=== PATIENT | male | born 1975 | race Caucasian/White ===

== ENCOUNTER 2018-06-28 12:00 | Emergency (ER) | payer OTHER ==
[2018-06-28] MEDS ORDERED: KETOROLAC 30 MG/ML 1 ML VIAL IVP STA (12:44)
--- NOTE | 2018-06-28 12:46 | ED ---
Chest Pain HPI - General Chief Complaint: Chest Pain Stated Complaint: rib pain Time Seen by Provider: 06/28/18 12:08 Source: patient, RN notes reviewed, old records reviewed Mode of arrival: ambulatory Limitations: no limitations - History of Present Illness Initial Comments: Patient is a 43-year-old male presents for shortness today with right-sided chest pain rib pain and abdominal pain. Patient is concerned that it could be more than a pulled muscle. He reports his symptoms started on Wednesday. It does seem to be worse after eating. 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 He states that he has felt nauseated. He reports that he's had normal urination and bowel habits.Patient denies any recent fever , chills, shortness of breath, , back pain, abdominal pain, nausea vomiting, numbness or tingling, dysuria or hematuria, constipation or diarrhea, headaches or visual changes, or any other current symptoms - Related Data Home Medications Medication Instructions Recorded Confirmed Multivitamin [Men's Multi-Vitamin] 1 tab PO DAILY 12/31/14 06/28/18 Ibuprofen [Motrin Ib] 600 - 800 mg PO Q6H PRN 06/28/18 06/28/18 Previous Rx's Medication Instructions Recorded Cyclobenzaprine [Flexeril] 10 mg PO TID #12 tab 06/28/18 Ibuprofen [Motrin] 600 mg PO Q6HR PRN #20 tab 06/28/18 Allergies Allergy/AdvReac Type Severity Reaction Status Date / Time No Known Allergies Allergy Verified 06/28/18 12:49 Review of Systems ROS Statement: Those systems with pertinent positive or pertinent negative responses have been documented in the HPI. ROS Other: All systems not noted in ROS Statement are negative. EKG Findings - EKG Comments: EKG Findings:: EKG performed at 1251 shows normal sinus rhythm normal EKG. Jugular and 72 bpm. Intervals 140 ms. QS duration is 86. QT QTc is 376/411 ms. Past Medical History Past Medical History: No Reported History Additional Past Medical History / Comment(s): blood clot left arm History of Any Multi-Drug Resistant Organisms: None Reported Past Surgical History: Orthopedic Surgery Additional Past Surgical History / Comment(s): leg Past Anesthesia/Blood Transfusion Reactions: No Reported Reaction Past Psychological History: No Psychological Hx Reported Smoking Status: Current every day smoker Past Alcohol Use History: Occasional Past Drug Use History: None Reported General Exam - General Exam Comments Initial Comments: 43-year-old male. Alert and oriented. No distress. Limitations: no limitations General appearance: alert, in no apparent distress Head exam: Present: atraumatic, normocephalic, normal inspection Eye exam: Present: normal appearance, PERRL, EOMI. Absent: scleral icterus, conjunctival injection, periorbital swelling ENT exam: Present: normal exam, mucous membranes moist Neck exam: Present: normal inspection. Absent: tenderness, meningismus, lymphadenopathy Respiratory exam: Present: normal lung sounds bilaterally. Absent: respiratory distress, wheezes, rales, rhonchi, stridor Cardiovascular Exam: Present: regular rate, normal rhythm, normal heart sounds. Absent: systolic murmur, diastolic murmur, rubs, gallop, clicks GI/Abdominal exam: Present: soft, normal bowel sounds. Absent: distended, tenderness, guarding, rebound, rigid Extremities exam: Present: normal inspection, full ROM, normal capillary refill. Absent: tenderness, pedal edema, joint swelling, calf tenderness Back exam: Present: normal inspection Neurological exam: Present: alert, oriented X3, CN II-XII intact Psychiatric exam: Present: normal affect, normal mood Skin exam: Present: warm, dry, intact, normal color. Absent: rash Course Vital Signs 06/28/18 12:01 Temperature 98.1 F Pulse Rate 75 Respiratory 20 Rate Blood Pressure 133/90 O2 Sat by Pulse 98 Oximetry Chest Pain MDM - MDM 43-year-old male presents emergency room today with complaints of right-sided rib pain. Initially it was related to muscle strain. Patient complains some deep internal pain. This time Patient is given IV fluids and laboratory obtained. Patient's labwork was reviewed and unremarkable. Normal kidney and liver function. Urinalysis shows no blood. Patient's EKG was normal. Negative troponin. Chest x-rays unremarkable. Discussed with all lab work and x-rays the patient's symptoms are likely muscular skeletal. Discussed discharging the Patient. With PCP. We'll discharge of Motrin 600 and Flexeril prescription. Disposition Clinical Impression: Chest wall pain Disposition: HOME SELF-CARE Condition: Good Instructions (If sedation given, give patient instructions): Costochondritis ( ED) Additional Instructions: Follow-up with primary care physician. Patient should return to the emergency department if any alarming signs or symptoms occur. Patient should take Motrin and Tylenol and use the muscle relaer prescription as prescribed. Prescriptions: Cyclobenzaprine [Flexeril] 10 mg PO TID #12 tab Ibuprofen [Motrin] 600 mg PO Q6HR PRN #20 tab PRN Reason: Pain Is patient prescribed a controlled substance at d/c from ED?: No Referrals: Davin Chen DO [Primary Care Provider] - 1-2 days Time of Disposition: 15:25
--- NOTE | 2018-06-28 14:04 | XR ---
EXAMINATION TYPE: XR chest 2V DATE OF EXAM: 06/28/2018 COMPARISON: Chest x-ray December 31, 2014 HISTORY: Right-sided chest pain. TECHNIQUE: Frontal and lateral views of the chest are obtained. FINDINGS: There is no focal air space opacity, pleural effusion, or pneumothorax seen. The cardiac silhouette size is within normal limits. The osseous structures are intact. IMPRESSION: No acute process. No significant change from prior.
[2018-06-28 14:10] LABS: Basophils # (A) 0.1 k/uL (0-0.2); Basophils % (A) 1 %; Eosinophils # (A) 0.3 k/uL (0-0.7); Eosinophils % (A) 3 %; HCT 52.2 % (39.0-53.0); HGB 17.6 gm/dL (13.0-17.5); Lymphocytes # (A) 1.8 k/uL (1.0-4.8); Lymphocytes % (A) 19 %; MCH 30.4 pg (25.0-35.0); MCHC 33.7 g/dL (31.0-37.0); MCV 90.1 fL (80.0-100.0); Mean Platelet Volume 6.5; Monocytes # (A) 0.5 k/uL (0-1.0); Monocytes % (A) 6 %; Neutrophils # (A) 6.9 k/uL (1.3-7.7); Neutrophils % (A) 71 %; Platelet Count 253 k/uL (150-450); RBC 5.79 m/uL (4.30-5.90); RDW 13.2 % (11.5-15.5); WBC 9.8 k/uL (3.8-10.6)
[2018-06-28 14:19] LABS: ALT 38 U/L (21-72); AST 26 U/L (17-59); Albumin 3.3 g/dL (3.5-5.0); Alkaline Phosphatase 72 U/L (38-126); Amylase 57 U/L (30-110); Anion Gap 5 mmol/L; Blood Urea Nitrogen 11 mg/dL (9-20); Calcium 9.3 mg/dL (8.4-10.2); Carbon Dioxide 28 mmol/L (22-30); Chloride 107 mmol/L (98-107); Glucose 94 mg/dL (74-99); INR 0.9 (<1.2); Lipase 152 U/L (23-300); Magnesium 2.1 mg/dL (1.6-2.3); Partial Thromboplastin Time 25.3 sec (22.0-30.0); Potassium 4.4 mmol/L (3.5-5.1); Prothrombin Time 9.8 sec (9.0-12.0); Sodium 140 mmol/L (137-145); Total Bilirubin 1.2 mg/dL (0.2-1.3); Total Protein 6.3 g/dL (6.3-8.2)
[2018-06-28 15:14] LABS: Appearance,Urine Clear (Clear); Bilirubin,Urine Negative (Negative); Blood,Urine Negative (Negative); Color,Urine Yellow; Glucose,Urine (UA) Negative (Negative); Ketones,Urine Negative (Negative); Leukocyte Esterase,Urine Negative (Negative); Nitrite,Urine Negative (Negative); Protein,Urine Negative (Negative); Specific Gravity,Urine 1.016 (1.001-1.035)
[2018-06-28 15:30] VITALS: BP 137/104; PULSE 72; RESP 14; TEMP 97.8
== END 2018-06-28 15:35 | disposition home or self-care (01) ==
LOC: EC 12:00
DX: R07.89 Other chest pain (principal); R07.81 Pleurodynia; F17.200 Nicotine dependence, unspecified, uncomplicated
CPT/HCPCS: 36415; 93005; 80053; 82150; 83690; 83735; 84484; 85025; 85610; 85730; 81003; 71046; 99285; 96374; J1885

== ENCOUNTER 2024-08-25 23:13 | Inpatient (IN) | payer OTHER ==
[2024-08-25] MEDS: PANTOPRAZOLE 40 MG/10 ML VIAL IVP STA (23:30)
[2024-08-25] MEDS: SODIUM CHLORIDE 0.9% 1,000 ML IV ONE (23:30)
[2024-08-25] MEDS: MORPHINE SULFATE 4 MG/ML SYRINGE IVP STA (23:31)
[2024-08-25] MEDS: ONDANSETRON 4 MG/2 ML VIAL IVP STA (23:31)
[2024-08-25] MEDS: HYDROmorphone 0.5 MG/0.5 ML SYRINGE IVP STA (23:47)
--- NOTE | 2024-08-25 23:47 | XR ---
EXAMINATION TYPE: XR chest 1V portable DATE OF EXAM: 08/25/2024 11:38 PM COMPARISON: None. CLINICAL INDICATION: Male, 49 years old with history of barbara, diffuse abdominal pain, right shoulder p ain TECHNIQUE: XR chest 1V portable view(s) obtained. FINDINGS: The heart size is normal. The pulmonary vasculature is normal. The lungs are clear. There is a right-sided pneumoperitoneum. Additional workup is recommended. Report was called to the e mergency room by Dr. Nichols by telephone at the time of interpretation 2342 hours 08/25/2024 IMPRESSION: 1. Pneumoperitoneum. 2. No acute pulmonary process. [facility], , 08/25/2024 11:44 PM
[2024-08-25] MEDS ORDERED: VANCOMYCIN IV PER PHARMACY 1 EACH MISC MISCELLANE PRN (23:48)
[2024-08-25 23:51] LABS: ALT 40 U/L (4-49); African American GFR (CKD) 83 (>60 ml/min/1.73 sqM); Albumin 3.7 g/dL (3.5-5.0); Amylase 69 U/L (30-110); Anion Gap 11 mmol/L; Blood Urea Nitrogen 7 mg/dL (9-20); Carbon Dioxide 19 mmol/L (22-30); Chloride 103 mmol/L (98-107); Glucose 103 mg/dL (74-99); Lipase 170 U/L (23-300); Non-African American GFR(CKD) 72 (>60 ml/min/1.73 sqM); Sodium 133 mmol/L (137-145); Total Protein 6.9 g/dL (6.3-8.2)
[2024-08-25] MEDS: PIPERACILLIN-TAZOBACTAM 3.375 GM in SODIUM CHLORIDE 0.9% 100 ML IVPB SCH (23:51)
[2024-08-25 23:53] LABS: Basophils # (A) 0.11 10*3/uL (0.00-0.10); Basophils % (A) 0.9 %; Eosinophils # (A) 0.42 10*3/uL (0.04-0.35); Eosinophils % (A) 3.4 %; HCT 54.6 % (39.6-50.0); Lymphocytes # (A) 4.87 10*3/uL (0.90-5.00); Lymphocytes % (A) 39.7 %; MCH 34.3 pg (27.0-32.0); MCHC 35.7 g/dL (32.0-37.0); Mean Platelet Volume 9.2 fL (9.5-12.2); Monocytes # (A) 0.76 10*3/uL (0.20-1.00); Monocytes % (A) 6.2 %; Neutrophils # (A) 6.06 10*3/uL (1.80-7.70); Neutrophils % (A) 49.3 %; Platelet Count 320 10*3/uL (140-440); RBC 5.69 10*6/uL (4.40-5.60); RDW 13.2 % (11.5-14.5); WBC 12.28 10*3/uL (4.50-10.00)
[2024-08-25 23:58] LABS: Partial Thromboplastin Time 23.5 sec (22.0-30.0); Prothrombin Time 10.9 sec (10.0-12.5)
[2024-08-25] MEDS: LACTATED RINGERS 1,000 ML IV ONE (23:58)
[2024-08-25] MEDS: LACTATED RINGERS 1,000 ML IV SCH (23:58)
[2024-08-26 00:09] LABS: AST 52 U/L (17-59)
[2024-08-26 00:10] LABS: Alkaline Phosphatase 93 U/L (38-126)
[2024-08-26] MEDS: VANCOMYCIN 2,000 MG in SODIUM CHLORIDE 0.9% 500 ML 500 ML IVPB ONE (00:12)
[2024-08-26 00:13] LABS: HGB 19.5 g/dL (13.0-17.0)
--- NOTE | 2024-08-26 00:17 | ED ---
General Adult HPI - General Chief complaint: Abdominal Pain Stated complaint: Difficulty Breathing, Abdominal Pain Time Seen by Provider: 08/25/24 23:20 Source: patient, RN notes reviewed, old records reviewed Mode of arrival: ambulatory Limitations: no limitations - History of Present Illness Initial comments: 49-year-old male with past medical history for blood clot in his arm previously was currently not on anticoagulation presents emergency department with severe abdominal pain and right shoulder pain. States that he has been dealing with some intermittent abdominal discomfort over the last week or so. He has been taking Motrin for it. Shortly prior to arrival, patient began experiencing excruciating worsening abdominal pain with right shoulder pain and states he cannot breathe. Denies any cough, fevers, chills. States his pain is primarily in the upper abdomen as well as the right shoulder. Denies any tonny chest pain or back pain. Denies any urinary complaints. Denies any cough or congestion. No history of abdominal surgeries. Presents for further evaluation at this time. - Related Data Home Medications Medication Instructions Recorded Confirmed No Known Home Medications 08/26/24 08/26/24 Allergies Allergy/AdvReac Type Severity Reaction Status Date / Time No Known Allergies Allergy Verified 08/26/24 15:25 Review of Systems ROS Statement: Those systems with pertinent positive or pertinent negative responses have been documented in the HPI. Review of Systems: CONST: Denies fever EYES: Denies blurry vision ENT: Denies nasal congestion C/V: Denies Chest pain RESP: Denies shortness of breath GI: Endorses abdominal pain : Denies dysuria SKIN: Denies rash. MSK: Endorses right shoulder pain NEURO: Denies headache ROS Other: All systems not noted in ROS Statement are negative. Past Medical History Past Medical History: No Reported History Additional Past Medical History / Comment(s): blood clot left arm History of Any Multi-Drug Resistant Organisms: None Reported Past Surgical History: Orthopedic Surgery Additional Past Surgical History / Comment(s): leg Past Anesthesia/Blood Transfusion Reactions: No Reported Reaction Past Psychological History: No Psychological Hx Reported Past Alcohol Use History: Occasional Past Drug Use History: None Reported - Past Family History Mother Family Medical History: Dementia Father Family Medical History: Cancer Additional Family Medical History / Comment(s): melanoma General Exam - General Exam Comments Initial Comments: General: Appears in moderate distress secondary to pain. HEAD: Normal with no signs of head trauma. EYES: PERRLA, EOMI, conjunctiva normal, no discharge. ENT: Hearing grossly intact, normal oropharynx. RESPIRATORY: Clear breath sounds bilaterally. No wheezes, rales, or rhonchi. C/V: Regular rate and rhythm. S1 and S2 auscultated, no edema, peripheral pulses 2+ and intact throughout ABD: Abdomen is soft, nondistended. Tender to palpation in the epigastric and bilateral upper quadrants. Mild guarding but no rebound tenderness. No peritoneal signs. EXT: Normal range of motion, no obvious deformity right shoulder pain is not reproducible on palpation. Not reproducible with movement. SKIN: No rashes or lesions observed on exposed skin. NEURO: Alert and oriented x 4. Limitations: no limitations Course Vital Signs 08/25/24 08/25/24 08/26/24 23:14 23:52 00:06 Temperature 98.1 F Pulse Rate 78 77 67 Respiratory 18 20 18 Rate Blood Pressure 169/103 136/96 126/73 O2 Sat by Pulse 96 95 95 Oximetry 08/26/24 08/26/24 08/26/24 00:23 01:05 02:52 Temperature Pulse Rate 74 67 Respiratory 18 18 Rate Blood Pressure 125/75 129/87 O2 Sat by Pulse 95 95 96 Oximetry 08/26/24 08/26/24 08/26/24 03:19 03:50 05:00 Temperature Pulse Rate 75 81 73 Respiratory 16 18 16 Rate Blood Pressure 122/67 130/75 149/91 O2 Sat by Pulse 96 96 95 Oximetry 08/26/24 08/26/24 05:30 07:15 Temperature Pulse Rate 75 84 Respiratory 24 20 Rate Blood Pressure 163/91 161/101 O2 Sat by Pulse 95 95 Oximetry Medical Decision Making - Medical Decision Making Was pt. sent in by a medical professional or institution (, PA, CRAYON MOLDING MACHINE OPERATOR, urgent care, hospital, or long-term...) When possible be specific @ -No Did you speak to anyone other than the patient for history (EMS, parent, family, police, friend...)? What history was obtained from this source @ -No Did you review nursing and triage notes (agree or disagree)? Why? @ -I reviewed and agree with nursing and triage notes Were old charts reviewed (outside hosp., previous admission, EMS record, old EKG, old radiological studies, urgent care reports/EKG's, long-term records)? Report findings @ -No old charts were reviewed Differential Diagnosis (chest pain, altered mental status, abdominal pain women, abdominal pain men, vaginal bleeding, weakness, fever, dyspnea, syncope, headache, dizziness, GI bleed, back pain, seizure, CVA, palpatations, mental health, musculoskeletal)? @ -Differential Abdominal Pain Men: Appendicitis, cholecystitis, diverticulosis, ischemic bowel, pancreatitis, hepatitis, UTI, gastroenteritis, AAA, incarcerated hernia, bowel obstruction, constipation, inflammatory bowel, hepatitis, peptic ulcer disease, splenic infarction, perforated viscus, testicular torsion, this is not meant to be an all-inclusive list EKG interpreted by me (3pts min.). @ -As above X-rays interpreted by me (1pt min.). @ -Patient does have free air under the diaphragm on chest x-ray. Located under the right hemidiaphragm. Concerning for pneumoperitoneum and perforated viscus CT interpreted by me (1pt min.). @ -CT imaging shows pneumoperitoneum with ascites. Concern for ruptured viscus. There is wall thickening and inflammatory changes around the gallbladder as well. Concerning for acute cholecystitis. Gastritis and proximal duodenitis are present. Inflammatory changes of the colon as well. Aorta appears unremarkable. U/S interpreted by me (1pt. min.). @ -None done What testing was considered but not performed or refused? (CT, X-rays, U/S, labs)? Why? @ -None What meds were considered but not given or refused? Why? @ -None Did you discuss the management of the patient with other professionals (professionals i.e. , PA, CRAYON MOLDING MACHINE OPERATOR, lab, RT, psych nurse, social service manager, aerial lineman, teacher, intelligence officer basic, complex case manager)? Give summary @ -Discussed x-ray findings with quality control lead surgeon Dr. Montague immediately after obtaining them, which showed free air under the diaphragm concerning for pneumoperitoneum. Was in agreement with plan for n.p.o., CT imaging, labs and empiric antibiotics. Stat rad did call with the CT imaging results and they did not see an obvious ulcer rupture but they are concerned for the cholecystitis as well as the pneumoperitoneum. Discussed CT imaging with Dr. Montague and his laboratory studies at 0050, Including the pneumoperitoneum as well as the concerning findings for cholecystitis.. Patient hemodynamically stable at this time with continued pain. Was in agreement plan for admission under his service as well as continue with the above plan for n.p.o., IV antibiotics, IV fluids. Was smoking cessation discussed for >3mins.? @ -No Was critical care preformed (if so, how long)? @ -yes, 36 minutes Were there social determinants of health that impacted care today? How? (Homelessness, low income, unemployed, alcoholism, drug addiction, transportation, low edu. Level, literacy, decrease access to med. care, [facility], rehab)? @ -No Was there de-escalation of care discussed even if they declined (Discuss DNR or withdrawal of care, Hospice)? DNR status @ -No What co-morbidities impacted this encounter? (DM, HTN, Smoking, COPD, CAD, Cancer, CVA, ARF, Chemo, Hep., AIDS, mental health diagnosis, sleep apnea, morbid obesity)? @ -None Was patient admitted / discharged? Hospital course, mention meds given and route, prescriptions, significant lab abnormalities, going to OR and other pertinent info. @ -Patient presents with severe abdominal and right shoulder pain. Discussed with the patient we will obtain with CT imaging of the chest abdomen pelvis. Ab dominal labs will also be obtained. Patient given IV fluids, Protonix, Zofran, pain meds. We did shoed a portable chest x-ray at bedside which does show free air under the right hemidiaphragm. Added on was a blood culture and patient will be started on empiric antibiotics vancomycin and Zosyn as well as initiate a second IV and provide the patient with a total of 2 L of IV fluids and started on maintenance infusion. Patient made NPO. I discussed the case with the on- call surgeon Dr. Montague who was in agreement with this plan and recommended the CT imaging. Patient initially presented hypertensive but this did improve with analgesia medications. Hemodynamically stable otherwise. Patient expressed understanding and was in agreement this plan. EKG shows no signs of acute ischemia.Laboratory studies remarkable for a leukocytosis of 12, and elevated hemoglobin of 19.5, normal lactic acid, undetectable troponin, normal hepatobiliary labs. CT imaging returned remarkable for pneumoperitoneum, with cholecystitis findings. No obvious aortic injury. I discussed the results with the patient and updated him. Will continue with the IV antibiotics, fluids, patient being n.p.o., and antiemetics as needed. Hemodynamically stable at this time. Still having continued pain which does respond to Dilaudid. I discussed the results of the CT and the labs with Dr. Montague on a call back at 0050, Including the pneumoperitoneum as well as the concerning findings for cholecystitis. Would like the patient admitted under his service and continue with patient being n.p.o., IV antibiotics, IV fluids. At time of admission, patient hemodynamically stable complaining of pain. Patient was holding in the ER. I reevaluated the patient and his abdomen is slightly more distended than previous. Is still having continued pain. Remains hemodynamically stable. I reach back out to Dr. Montague at 0538 to update him via perfect serve.Did not receive a direct response but shortly there afterwards, OR was being called in for surgery. Undiagnosed new problem with uncertain prognosis? @ -No Drug Therapy requiring intensive monitoring for toxicity (Heparin, Nitro, Insulin, Cardizem)? @ -No Were any procedures done? @ -No Diagnosis/symptom? @ -Pneumoperitoneum , cholecystitis Acute, or Chronic, or Acute on Chronic? @ -Acute Uncomplicated (without systemic symptoms) or Complicated (systemic symptoms)? @ -Complicated Side effects of treatment? @ -None Exacerbation, Progression, or Severe Exacerbation] @ -No Poses a threat to life or bodily function? @ -yes - Lab Data Result diagrams: 08/25/24 23:26 08/25/24 23:26 Lab Results 08/25/24 08/25/24 08/25/24 Range/Units 23:25 23:26 23:26 WBC 12.28 H (4.50-10.00) 10*3/uL RBC 5.69 H (4.40-5.60) 10*6/uL Hgb 19.5 H* (13.0-17.0) g/dL Hct 54.6 H (39.6-50.0) % MCV 96.0 (80.0-97.0) fL MCH 34.3 H (27.0-32.0) pg MCHC 35.7 (32.0-37.0) g/dL Plt Count 320 (140-440) 10*3/uL MPV 9.2 L (9.5-12.2) fL Immature Gran % (Auto) 0.5 % Neutrophils % 49.3 % Lymphocytes % 39.7 % Monocytes % 6.2 % Eosinophils % 3.4 % Basophils % 0.9 % Immature Gran # 0.06 H (0.00-0.04) 10*3/uL Neutrophils # 6.06 (1.80-7.70) 10*3/uL Lymphocytes # 4.87 (0.90-5.00) 10*3/uL Monocytes # 0.76 (0.20-1.00) 10*3/uL Eosinophils # 0.42 H (0.04-0.35) 10*3/uL Basophils # 0.11 H (0.00-0.10) 10*3/uL PT 10.9 (10.0-12.5) sec INR 1.0 (<1.2) APTT 23.5 (22.0-30.0) sec Sodium (137-145) mmol/L Potassium (3.5-5.1) mmol/L Chloride (98-107) mmol/L Carbon Dioxide (22-30) mmol/L Anion Gap mmol/L BUN (9-20) mg/dL Creatinine (0.66-1.25) mg/dL Est GFR (CKD-EPI)AfAm (>60 ml/min/1.73 sqM) Est GFR (CKD-EPI)NonAf (>60 ml/min/1.73 sqM) Glucose (74-99) mg/dL Plasma Lactic Acid Matthieu (0.7-2.0) mmol/L Calcium (8.4-10.2) mg/dL Total Bilirubin (0.2-1.3) mg/dL AST (17-59) U/L ALT (4-49) U/L Alkaline Phosphatase (38-126) U/L Troponin I (0.000-0.034) ng/mL Total Protein (6.3-8.2) g/dL Albumin (3.5-5.0) g/dL Amylase (30-110) U/L Lipase (23-300) U/L Blood Type A Positive Blood Type Recheck A Pos Bld Type Recheck Status No Antibody Screen NEGATIVE Spec Expiration Date 08/28/2024 - 2325 04/25/25 04/25/25 04/25/25 Range/Units 23:26 23:26 23:26 WBC (4.50-10.00) 10*3/uL RBC (4.40-5.60) 10*6/uL Hgb (13.0-17.0) g/dL Hct (39.6-50.0) % MCV (80.0-97.0) fL MCH (27.0-32.0) pg MCHC (32.0-37.0) g/dL Plt Count (140-440) 10*3/uL MPV (9.5-12.2) fL Immature Gran % (Auto) % Neutrophils % % Lymphocytes % % Monocytes % % Eosinophils % % Basophils % % Immature Gran # (0.00-0.04) 10*3/uL Neutrophils # (1.80-7.70) 10*3/uL Lymphocytes # (0.90-5.00) 10*3/uL Monocytes # (0.20-1.00) 10*3/uL Eosinophils # (0.04-0.35) 10*3/uL Basophils # (0.00-0.10) 10*3/uL PT (10.0-12.5) sec INR (<1.2) APTT (22.0-30.0) sec Sodium 133 L (137-145) mmol/L Potassium 4.0 (3.5-5.1) mmol/L Chloride 103 (98-107) mmol/L Carbon Dioxide 19 L (22-30) mmol/L Anion Gap 11 mmol/L BUN 7 L (9-20) mg/dL Creatinine 1.19 (0.66-1.25) mg/dL Est GFR (CKD-EPI)AfAm 83 (>60 ml/min/1.73 sqM) Est GFR (CKD-EPI)NonAf 72 (>60 ml/min/1.73 sqM) Glucose 103 H (74-99) mg/dL Plasma Lactic Acid Matthieu 2.0 (0.7-2.0) mmol/L Calcium 9.0 (8.4-10.2) mg/dL Total Bilirubin 1.0 (0.2-1.3) mg/dL AST 52 (17-59) U/L ALT 40 (4-49) U/L Alkaline Phosphatase 93 (38-126) U/L Troponin I <0.012 (0.000-0.034) ng/mL Total Protein 6.9 (6.3-8.2) g/dL Albumin 3.7 (3.5-5.0) g/dL Amylase 69 (30-110) U/L Lipase 170 (23-300) U/L Blood Type Blood Type Recheck Bld Type Recheck Status Antibody Screen Spec Expiration Date - EKG Data -: EKG Interpreted by Me EKG Comments: 12-lead Electrocardiogram Interpretation Note EKG was reviewed and interpreted by myself. 12-lead ECG performed at 2322 is interpreted by me as revealing normal sinus rhythm at a rate of 75 beats per minute. [place] is normal. GA interval is 148 ms, QRS durations 92 ms, QTc is 405 ms.. There were no ST or T wave abnormalities to suggest myocardial ischemia or injury. R wave progression across the precordium was satisfactory. By my interpretation this EKG is non-diagnostic for acute ischemia. Critical Care Time Critical Care Time: Yes Total Critical Care Time: 36 Disposition Clinical Impression: Pneumoperitoneum, Cholecystitis Disposition: ADMITTED IP TO THIS HOSP Condition: Serious Time of Disposition: 01:05
[2024-08-26] MEDS: HYDROmorphone 0.5 MG/0.5 ML SYRINGE IVP STA ×3 (00:38→10:20)
--- NOTE | 2024-08-26 00:47 | CT ---
EXAM: CT Chest, Abdomen and Pelvis Without and With Intravenous Contrast CLINICAL HISTORY: ITS.REASON CT Reason: diffuse pain TECHNIQUE: Axial computed tomographic images of the chest, abdomen and pelvis without and with intravenous contrast. CTDI is 49.3 mGy and DLP is 2055 mGy-cm. This CT exam was performed using one or more of the following dose reduction techniques: automated exposure control, adjustment of the mA and/or kV according to patient size, and/or use of iterative reconstruction technique. COMPARISON: No previous studies. FINDINGS: VASCULATURE: Aorta: Atherosclerotic disease of the thoracic aorta is noted. Atherosclerotic disease of the abdominal aorta without change in caliber. No aortic aneurysm. No dissection. Pulmonary arteries: Following the administration of intravenous contrast, central pulmonary arteries are unremarkable. Good flow within the peripheral branches the pulmonary arteries. Great vessels of aortic arch: No acute findings. No dissection. No arterial occlusion or significant stenosis. Celiac trunk and mesenteric arteries: Good flow within the celiac, SMA, the renal arteries, and ANGEL. Renal arteries: See above. Iliac arteries: Flow is noted within the common iliac, external and internal iliac arteries, extending to the common femoral arteries. CHEST: Lungs: COPD. Minimal scarring and subsegmental atelectasis in the mid lower lung zones. No mass. Pleural space: Unremarkable. No pneumothorax. No pleural effusions. Heart: Unremarkable. No cardiomegaly. No significant pericardial effusion. Mediastinum: Small hiatal hernia and distal esophagitis. ABDOMEN: Liver: Moderate quantity of free intra-abdominal air is noted most notably about the dome of the liver. Gallbladder and bile ducts: Possible small gallstones. Clinical correlation is advised to assess for acute cholecystitis. Inflammatory changes are noted about the gallbladder is. No ductal dilation. Pancreas: Unremarkable. No ductal dilation. No mass. Spleen: Unremarkable. No splenomegaly. Adrenals: Unremarkable. No mass. Kidneys and ureters: Unremarkable. No obstructing stones. No hydronephrosis. No solid mass. Stomach and bowel: Wall thickening of the gastric antrum and the duodenum. Consider duodenitis/gastritis. Possible mild diffuse wall thickening the colon. No obstruction. PELVIS: Appendix: Appendix is unremarkable. Bladder: Unremarkable. No stones. No mass. Reproductive: Coarse calcifications noted within the prostate gland. CHEST, ABDOMEN and PELVIS: Intraperitoneal space: Moderate quantity of ascites surrounding the liver. No free air. Bones/joints: Moderate to severe degenerative disc disease of the thoracic spine, kyphosis, and dextroscoliosis. No acute fracture. No dislocation. Soft tissues: Unremarkable. Lymph nodes: Unremarkable. No enlarged lymph nodes. Other findings: Pelvic phlebolith are noted. IMPRESSION: 1. Central pulmonary arteries are unremarkable. 2. Peripheral branches the pulmonary arteries are unremarkable. 3. There is free intra-abdominal air most notably about the liver and ascites. Findings are worrisome for ruptured viscus. Surgical consultation is highly advised. 4. Good flow within the abdominal aorta and its major branches. 5. Significant atherosclerotic disease. 6. Wall thickening and inflammatory changes about the gallbladder. Clinical correlation is advised to assess for acute cholecystitis. Ultrasound imaging of the right upper quadrant may provide additional information. 7. Possible mild antral gastritis and proximal duodenitis. 8. Wall thickening of the colon. Again inflammatory or infectious etiology should be considered. <MYCVCSECTION> Communications: 08/26/24 00:48 Call Doctor Regarding Above results, called Dr. Fernández on 08/26 00:48 (-04:00)
[2024-08-26] MEDS ORDERED: ONDANSETRON 4 MG/2 ML VIAL IVP PRN ×2 (01:02→08:20)
[2024-08-26] MEDS ORDERED: NALOXONE 0.4 MG/ML 1 ML VIAL IV PRN ×2 (01:02→08:20)
[2024-08-26] MEDS: HYDROmorphone 0.5 MG/0.5 ML SYRINGE IVP PRN (01:42)
[2024-08-26 03:03] LABS: Appearance,Urine Clear (Clear); Bilirubin,Urine Negative (Negative); Blood,Urine Trace (Negative); Color,Urine Colorless; Glucose,Urine (UA) Negative (Negative); Ketones,Urine Negative (Negative); Leukocyte Esterase,Urine Negative (Negative); Mucus,Urine Rare /hpf; Nitrite,Urine Negative (Negative); PH, Urine 5.5 (5.0-8.0); Protein,Urine Negative (Negative); RBC,Urine 1 /hpf (0-5); Specific Gravity,Urine 1.043 (1.001-1.035); Urobilinogen,Urine <2.0 mg/dL (<2.0); WBC,Urine 1 /hpf (0-5)
[2024-08-26] MEDS ORDERED: HYDROmorphone (PF) 1 MG/ML ONE (07:25)
[2024-08-26] MEDS ORDERED: MIDAZOLAM 2 MG/2 ML VIAL ONE (07:25)
[2024-08-26] MEDS ORDERED: PROPOFOL 10 MG/ML 20 ML VIAL IV ONE (07:25)
[2024-08-26] MEDS ORDERED: LIDOCAINE 1% INJ 10MG/ML (20 ML MDV) ONE (07:25)
[2024-08-26] MEDS ORDERED: SUCCINYLCHOLINE CHLORIDE 200 MG/10 ML VIAL IV ONE (07:25)
[2024-08-26] MEDS ORDERED: NEOSTIGMINE 1 MG/ML 10 ML VIAL ONE (07:25)
[2024-08-26] MEDS ORDERED: GLYCOPYRROLATE 0.2 MG/ML 2 ML VIAL ONE (07:25)
[2024-08-26] MEDS ORDERED: fentaNYL (PF) 50 MCG/ML 2 ML AMP ONE (07:25)
[2024-08-26] MEDS ORDERED: ROCURONIUM 10 MG/ML (5 ML VIAL) IV ONE (07:25)
--- NOTE | 2024-08-26 07:26 | P.GSHP ---
History of Present Illness H&P Date: 08/26/24 Chief Complaint: abdominal pain the 49-year-old male who has developed worsening abdominal pain over the last 48 hours. Patient states that she's been taking Motrin. Patient was worked up and returned. His chest x-ray shows free air under the right diaphragm. Computed tomography scan is suggestive of ascites around the liver. There are inflammatory changes in the colon and gallbladder. Past Medical History Past Medical History: No Reported History Additional Past Medical History / Comment(s): blood clot left arm History of Any Multi-Drug Resistant Organisms: None Reported Past Surgical History: Orthopedic Surgery Additional Past Surgical History / Comment(s): leg Past Anesthesia/Blood Transfusion Reactions: No Reported Reaction Past Psychological History: No Psychological Hx Reported Past Alcohol Use History: Occasional Past Drug Use History: None Reported Medications and Allergies Home Medications Medication Instructions Recorded Confirmed Type Multivitamin [Men's Multi-Vitamin] 1 tab PO DAILY 12/31/14 06/28/18 History Cyclobenzaprine [Flexeril] 10 mg PO TID #12 tab 06/28/18 Rx Ibuprofen [Motrin Ib] 600 - 800 mg PO Q6H PRN 06/28/18 06/28/18 History Ibuprofen [Motrin] 600 mg PO Q6HR PRN #20 tab 06/28/18 Rx Allergies Allergy/AdvReac Type Severity Reaction Status Date / Time No Known Allergies Allergy Verified 08/25/24 23:15 Surgical - Exam Vital Signs Temp Pulse Resp BP Pulse Ox 98.1 F 78 18 169/103 96 08/25/24 23:14 08/25/24 23:14 08/25/24 23:14 08/25/24 23:14 08/25/24 23:14 - General well developed, moderate distress, severe pain - Eyes PERRL - ENT normal pinna - Neck no masses - Respiratory normal expansion - Cardiovascular Rhythm: regular - Abdomen Abdomen: guarding, rebound Results - Labs 08/25/24 23:26 08/25/24 23:26 Abnormal Lab Results - Last 24 Hours (Table) 08/25/24 08/25/24 08/26/24 Range/Units 23:26 23:26 02:52 WBC 12.28 H (4.50-10.00) 10*3/uL RBC 5.69 H (4.40-5.60) 10*6/uL Hgb 19.5 H* (13.0-17.0) g/dL Hct 54.6 H (39.6-50.0) % MCH 34.3 H (27.0-32.0) pg MPV 9.2 L (9.5-12.2) fL Immature Gran # 0.06 H (0.00-0.04) 10*3/uL Eosinophils # 0.42 H (0.04-0.35) 10*3/uL Basophils # 0.11 H (0.00-0.10) 10*3/uL Sodium 133 L (137-145) mmol/L Carbon Dioxide 19 L (22-30) mmol/L BUN 7 L (9-20) mg/dL Glucose 103 H (74-99) mg/dL Ur Specific [place] 1.043 H (1.001-1.035) Urine Blood Trace H (Negative) Urine Mucus Rare H (None) /hpf Diabetes panel 08/25/24 Range/Units 23:26 Sodium 133 L (137-145) mmol/L Potassium 4.0 (3.5-5.1) mmol/L Chloride 103 (98-107) mmol/L Carbon Dioxide 19 L (22-30) mmol/L BUN 7 L (9-20) mg/dL Creatinine 1.19 (0.66-1.25) mg/dL Glucose 103 H (74-99) mg/dL Calcium 9.0 (8.4-10.2) mg/dL AST 52 (17-59) U/L ALT 40 (4-49) U/L Alkaline Phosphatase 93 (38-126) U/L Total Protein 6.9 (6.3-8.2) g/dL Albumin 3.7 (3.5-5.0) g/dL Calcium panel 08/25/24 Range/Units 23:26 Calcium 9.0 (8.4-10.2) mg/dL Albumin 3.7 (3.5-5.0) g/dL Pituitary panel 08/25/24 Range/Units 23:26 Sodium 133 L (137-145) mmol/L Potassium 4.0 (3.5-5.1) mmol/L Chloride 103 (98-107) mmol/L Carbon Dioxide 19 L (22-30) mmol/L BUN 7 L (9-20) mg/dL Creatinine 1.19 (0.66-1.25) mg/dL Glucose 103 H (74-99) mg/dL Calcium 9.0 (8.4-10.2) mg/dL Adrenal panel 08/25/24 Range/Units 23:26 Sodium 133 L (137-145) mmol/L Potassium 4.0 (3.5-5.1) mmol/L Chloride 103 (98-107) mmol/L Carbon Dioxide 19 L (22-30) mmol/L BUN 7 L (9-20) mg/dL Creatinine 1.19 (0.66-1.25) mg/dL Glucose 103 H (74-99) mg/dL Calcium 9.0 (8.4-10.2) mg/dL Total Bilirubin 1.0 (0.2-1.3) mg/dL AST 52 (17-59) U/L ALT 40 (4-49) U/L Alkaline Phosphatase 93 (38-126) U/L Total Protein 6.9 (6.3-8.2) g/dL Albumin 3.7 (3.5-5.0) g/dL Assessment and Plan Assessment: perforated viscus. Patient most likely has perforated peptic ulcer related to Motrin use. Patient undergo exploratory laparotomy.
[2024-08-26] MEDS: SODIUM CHLORIDE 0.9% 50 ML with ceFAZolin 2,000 MG IV ONE (07:32)
[2024-08-26] MEDS: LACTATED RINGERS 1,000 ML IV ONE ×4 (07:32→10:37)
--- NOTE | 2024-08-26 08:19 | P.OP ---
Date of Procedure: 08/26/24 Preoperative Diagnosis: perforated viscus Postoperative Diagnosis: perforated gastric ulcer Procedure(s) Performed: exploratory laparotomy with modified Luis Carlos repair patch of perforated gastric ulcer Anesthesia: SADIA Surgeon: Deniz Montague Estimated Blood Loss (ml): 25 Pathology: none sent Condition: stable Disposition: PACU Operative Findings: perforated gastric antral ulcer Description of Procedure: the patient's placed the operative table in supine position. He received general endotracheal tube anesthesia. His abdomen was prepped and draped usual fashion. The eye was entered through an upper midline incision. Upon entering the abdomen there is some bilious fluid seen in the upper abdomen. The abdominal PLACED a wound. The abdomen was explored. The anterior gastric wall had a 4 mm perforated ulcer in the prepyloric area and the antrum. The ulcer was closed with 3-0 GI silk sutures. Then an omental Luis Carlos patch was placed over top the repair and secured. The abdomen was irrigated with 6 L of saline. A AYAAN drains placed over top of the ulcer. And brought through separate stab incision in the right upper quadrant. The fascia is closed loop #1 PDS suture. Skin was closed melissa. Patient top she will sent to recovery in stable condition.
[2024-08-26] MEDS: IPRATROPIUM-ALBUTEROL 3 ML NEB INHALATION PRN (08:44)
[2024-08-26] MEDS: hydrALAZINE HCL 20 MG/ML 1 ML VIAL IVP PRN (09:48)
[2024-08-26] MEDS: METOPROLOL TARTRATE 5 MG/5 ML VIAL IVP PRN (10:23)
[2024-08-26] MEDS: ENOXAPARIN 40 MG/0.4 ML SYRINGE SQ SCH (11:51)
[2024-08-26] MEDS: PANTOPRAZOLE 40 MG/10 ML VIAL IV SCH (11:56)
[2024-08-26] MEDS: KETOROLAC 15 MG/ML 1 ML VIAL IVP SCH (11:58)
[2024-08-26] MEDS ORDERED: VANCOMYCIN 2,000 MG in SODIUM CHLORIDE 0.9% 500 ML 500 ML IVPB SCH (13:00)
[2024-08-26] MEDS: HYDROmorphone 2 MG/ML 1 ML SYRINGE IVP PRN (13:18)
[2024-08-26] MEDS: FLUCONAZOLE IN NACL,ISO-OSM 200 MG in SALINE 1 100ML.BAG IVPB SCH (13:19)
--- NOTE | 2024-08-26 23:15 | P.CONS ---
History of Present Illness - Reason for Consult Consult date: 08/26/24 Perforated gastric ulcer, peritonitis Requesting physician: Deniz Montague - Chief Complaint Abdominal pain x 1 week - History of Present Illness Patient is a 49-year-old male with DVT to the upper extremity, presenting to the hospital for evaluation of abdominal pain concerning of abdominal pain that apparently started for about a week however did have acute worsening on the day of presentation to the hospital patient describes the pain to be sharp almost 10 of 10 severity without any radiation did have some nausea but no vomiting no diarrhea or constipation patient was evaluated on presentation to the hospital patient was afebrile and no fever have been recorded subsequently patient was tachycardic at 1 point but not hypotensive mildly hypoxic currently on 2 L nasal cannula oxygen he did have a white count of 12.28 creatinine is 1.19 electrolytes has been normal liver enzymes are normal amylase lipase was normal urine negative patient did have a thoracic aorta CT Central pulmonary arteries are unremarkable, there was concern for wall thickening and inflammatory changes about the gallbladder and there was concern for possible acute cholecystitis patient was taken to the OR this morning patient was noticed to have perforated gastric ulcer status post expiratory laparotomy with modified Luis Carlos patch repair, patient was started on vancomycin and Zosyn infectious disease was consulted for further management of antibiotic therapy Review of Systems Positive point and negatives has been mentioned in the HPI, complete review of systems was performed and all other systems are negative Past Medical History Past Medical History: No Reported History Additional Past Medical History / Comment(s): blood clot left arm History of Any Multi-Drug Resistant Organisms: None Reported Past Surgical History: Orthopedic Surgery Additional Past Surgical History / Comment(s): leg Past Anesthesia/Blood Transfusion Reactions: No Reported Reaction Past Psychological History: No Psychological Hx Reported Past Alcohol Use History: Occasional Past Drug Use History: None Reported - Past Family History Mother Family Medical History: Dementia Father Family Medical History: Cancer Additional Family Medical History / Comment(s): melanoma Medications and Allergies Home Medications Medication Instructions Recorded Confirmed Type No Known Home Medications 08/26/24 08/26/24 History Allergies Allergy/AdvReac Type Severity Reaction Status Date / Time No Known Allergies Allergy Verified 08/26/24 15:25 Physical Exam Vitals: Vital Signs Temp Pulse Pulse Resp BP BP Pulse Ox 08/26/24 11:01 98 16 153/89 99 08/26/24 10:45 98 16 157/90 97 08/26/24 10:35 96 18 160/96 96 08/26/24 10:20 94 18 184/73 97 08/26/24 10:05 97 20 177/102 97 08/26/24 09:50 112 H 18 194/92 95 08/26/24 09:25 94 20 164/82 96 08/26/24 09:10 179/89 08/26/24 09:05 93 20 187/108 94 L 08/26/24 08:50 94 24 194/79 97 08/26/24 08:31 86 16 166/70 98 08/26/24 07:15 84 20 161/101 95 08/26/24 05:30 75 24 163/91 95 08/26/24 05:00 73 16 149/91 95 08/26/24 03:50 81 18 130/75 96 08/26/24 03:19 75 16 122/67 96 08/26/24 02:52 96 08/26/24 01:05 67 18 129/87 95 08/26/24 00:23 74 18 125/75 95 08/26/24 00:06 67 18 126/73 95 08/25/24 23:52 77 20 136/96 95 08/25/24 23:14 98.1 F 78 18 169/103 96 Intake and Output 08/25/24 08/26/24 08/26/24 22:59 06:59 14:59 Intake Total 1400 Output Total 350 Balance 1050 Intake: IV 1400 Output: Urine 300 Estimated Blood Loss 50 Other: Weight 113.398 kg 113.398 kg GENERAL DESCRIPTION: Middle-age male lying in bed, no distress. No tachypnea or accessory muscle of respiration use. HEENT: Shows Pallor , no scleral icterus. Oral mucous membrane is dry. NECK: Trachea central, no thyromegaly. LUNGS: Unlabored breathing. Clear to auscultation anteriorly. No wheeze or crackle. HEART: S1, S2, regular rate and rhythm. No loud murmur ABDOMEN: Soft, epigastric tenderness EXTREMITIES: No edema of feet. SKIN: No rash, no masses palpable. NEUROLOGICAL: The patient is awake, alert, oriented x3, mood and affect normal. Results CBC & Chem 7: 08/31/24 04:35 08/31/24 04:35 Labs: Abnormal Lab Results - Last 24 Hours (Table) 04/25/25 04/25/25 04/26/25 Range/Units 23:26 23:26 02:52 WBC 12.28 H (4.50-10.00) 10*3/uL RBC 5.69 H (4.40-5.60) 10*6/uL Hgb 19.5 H* (13.0-17.0) g/dL Hct 54.6 H (39.6-50.0) % MCH 34.3 H (27.0-32.0) pg MPV 9.2 L (9.5-12.2) fL Immature Gran # 0.06 H (0.00-0.04) 10*3/uL Eosinophils # 0.42 H (0.04-0.35) 10*3/uL Basophils # 0.11 H (0.00-0.10) 10*3/uL Sodium 133 L (137-145) mmol/L Carbon Dioxide 19 L (22-30) mmol/L BUN 7 L (9-20) mg/dL Glucose 103 H (74-99) mg/dL Ur Specific [place] 1.043 H (1.001-1.035) Urine Blood Trace H (Negative) Urine Mucus Rare H (None) /hpf Assessment and Plan (1) Perforated gastric ulcer Current Visit: Yes Status: Acute Code(s): K25.5 - CHRONIC OR UNSPECIFIED GASTRIC ULCER WITH PERFORATION SNOMED Code(s): 6944587 (2) Peritonitis Current Visit: Yes Status: Acute Code(s): K65.9 - PERITONITIS, UNSPECIFIED SNOMED Code(s): 12858722 Plan: 1 Patient presented to the hospital with abdominal pain and this patient has been diagnosed with perforated gastric ulcer and will need for for the enteric gram-negative as well as Bette to be the likely pathogen less likely gram- positive infection 2-we will treat the patient with Zosyn and Diflucan however no need for vancomycin which will be discontinued Family bedside question concern answered We will follow on clinical condition and cultures to further adjust medication if needed Thank you for this consultation we will follow the patient along with you Dictation was produced using [employer] dictation software. please excuse any grammatical, word or spelling errors. Time with Patient: Greater than 30
[2024-08-27 09:53] LABS: Basophils # (A) 0.07 X 10*3/uL (0.00-0.10); Basophils % (A) 0.4 %; Eosinophils # (A) 0.04 X 10*3/uL (0.04-0.35); Eosinophils % (A) 0.3 %; HCT 49.4 % (39.6-50.0); HGB 16.6 g/dL (13.0-17.0); Lymphocytes % (A) 7.5 %; MCH 33.6 pg (27.0-32.0); MCHC 33.6 g/dL (32.0-37.0); Mean Platelet Volume 9.9 FL (9.5-12.2); Monocytes # (A) 0.72 X 10*3/uL (0.20-1.00); Monocytes % (A) 4.5 %; NRBC Per 100 WBC 0 X 10*3/uL (0.00-0.01); Neutrophils # (A) 13.84 X 10*3/uL (1.80-7.70); Neutrophils % (A) 86.7 %; Platelet Count 192 X 10*3/uL (140-440); RBC 4.94 X 10*6/uL (4.40-5.60); WBC 15.97 X 10*3/uL (4.50-10.00)
--- NOTE | 2024-08-27 10:28 | P.PN ---
Subjective Progress Note Date: 08/27/24 The patient is resting comfortably in bed. He states he feels significant better than yesterday. The patient apparently removed his nasogastric tube yesterday. On exam vital signs appear stable. Abdomen is soft incision site is clean dry intact. There is minimal output through the AYAAN drain. Status post repair of perforated gastric ulcer. Patient will remain n.p.o. today. We will plan on starting clear liquids tomorrow. Objective - Vital Signs Vital signs: Vital Signs Temp 98.3 F 08/27/24 08:00 Pulse 75 08/27/24 08:00 Resp 16 08/27/24 08:00 BP 133/82 08/27/24 08:00 Pulse Ox 93 L 08/27/24 08:00 FiO2 Intake & Output 08/26/24 08/27/24 08/27/24 18:59 06:59 18:59 Intake Total 1660 Output Total 350 110 20 Balance 1310 -110 -20 Weight 113.398 kg 96 kg Intake: IV 1660 Lactated Ringers 1,000 ml 260 @ 130 mls/hr IV .Q7H42M [facility] Rx#:[id number] Output: Drainage 110 20 Right Abdomen 110 20 Urine 300 Estimated Blood Loss 50 Other: Voiding Method Indwelling Catheter Indwelling Catheter - Labs CBC & Chem 7: 08/27/24 05:04 08/25/24 23:26 Labs: Abnormal Lab Results - Last 24 Hours (Table) 08/27/24 Range/Units 05:04 WBC 15.97 H (4.50-10.00) X 10*3/uL MCV 100.0 H (80.0-97.0) [place] MCH 33.6 H (27.0-32.0) pg Immature Gran # 0.10 H (0.00-0.04) X 10*3/uL Neutrophils # 13.84 H (1.80-7.70) X 10*3/uL
[2024-08-27 10:44] LABS: ALT 26 U/L (10-49); AST 49 U/L (14-35); Albumin 2.6 g/dL (3.8-4.9); Alkaline Phosphatase 59 U/L (41-126); Blood Urea Nitrogen 15.6 mg/dL (9.0-27.0); Calcium 7.8 mg/dL (8.7-10.3); Carbon Dioxide 23.1 mmol/L (21.6-31.8); Chloride 105 mmol/L (96-109); Glucose 89 mg/dL (70-110); Potassium 4.2 mmol/L (3.5-5.5); Sodium 137 mmol/L (135-145); Total Bilirubin 2.2 mg/dL (0.3-1.2); Total Protein 4.6 g/dL (6.2-8.2)
--- NOTE | 2024-08-27 15:19 | P.PN ---
Subjective Progress Note Date: 08/27/24 Principal diagnosis: Reason for follow-up is perforated peptic ulcer disease/peritonitis Patient is a 49-year-old male with DVT to the upper extremity, presenting to the hospital for evaluation of abdominal pain concerning of abdominal pain has been diagnosed with perforated gastric ulcer status post expiratory laparotomy with modified Luis Carlos patch repair. On today's evaluation that is 08/27/2024, patient has been afebrile, patient is breathing comfortably and is currently on room air, patient denies having any chest pain and cough, patient denies nausea vomiting or diarrhea abdominal pain has slightly decreased in intensity. Patient white count slightly up to 15.97 creatinine is 1.2 blood cultures pending Objective - Vital Signs Vital signs: Vital Signs Temp 97.7 F 08/27/24 14:47 Pulse 88 08/27/24 14:47 Resp 18 08/27/24 14:47 BP 128/82 08/27/24 14:47 Pulse Ox 96 08/27/24 14:47 FiO2 Intake & Output 08/26/24 08/27/24 08/27/24 18:59 06:59 18:59 Intake Total 1660 Output Total 350 110 40 Balance 1310 -110 -40 Weight 113.398 kg 96 kg Intake: IV 1660 Lactated Ringers 1,000 ml 260 @ 130 mls/hr IV .Q7H42M [facility] Rx#:[id number] Output: Drainage 110 40 Right Abdomen 110 40 Urine 300 Estimated Blood Loss 50 Other: Voiding Method Indwelling Catheter Indwelling Catheter - Exam GENERAL DESCRIPTION: Middle-age male lying in bed in no distress RESPIRATORY SYSTEM: Unlabored breathing , decreased breath sounds at bases HEART: S1 S2 regular rate and rhythm , ABDOMEN: Soft , mild tenderness EXTREMITIES: No edema feet - Labs CBC & Chem 7: 08/27/24 05:04 08/27/24 05:04 Labs: Abnormal Lab Results - Last 24 Hours (Table) 08/27/24 08/27/24 Range/Units 05:04 05:04 WBC 15.97 H (4.50-10.00) X 10*3/uL MCV 100.0 H (80.0-97.0) FL MCH 33.6 H (27.0-32.0) pg Immature Gran # 0.10 H (0.00-0.04) X 10*3/uL Neutrophils # 13.84 H (1.80-7.70) X 10*3/uL Calcium 7.8 L (8.7-10.3) mg/dL Total Bilirubin 2.2 H (0.3-1.2) mg/dL AST 49 H (14-35) U/L Total Protein 4.6 L (6.2-8.2) g/dL Albumin 2.6 L (3.8-4.9) g/dL Albumin/Globulin Ratio 1.30 L (1.60-3.17) Ratio Microbiology - Last 24 Hours (Table) 08/25/24 23:50 Blood Culture - Preliminary Blood Assessment and Plan (1) Sepsis Current Visit: Yes Status: Acute Code(s): A41.9 - SEPSIS, UNSPECIFIED ORGANISM SNOMED Code(s): 61731717 (2) Perforated gastric ulcer Current Visit: Yes Status: Acute Code(s): K25.5 - CHRONIC OR UNSPECIFIED GASTRIC ULCER WITH PERFORATION SNOMED Code(s): 4339619 (3) Peritonitis Current Visit: Yes Status: Acute Code(s): K65.9 - PERITONITIS, UNSPECIFIED SNOMED Code(s): 47180568 Plan: 1 Patient presented to the hospital with sepsis in this patient who did have tachycardia elevated white count meeting criteria for SIRS cirrhosis perforated gastric ulcer and no need for for the enteric gram-negative as well as Bette to be the likely pathogen less likely gram-positive infection 2-white count slightly up need to be monitored closely for now continue with with Zosyn and Diflucan and monitor clinical course closely Dictation was produced using [employer] dictation software. please excuse any grammatical, word or spelling errors. Time with Patient: Less than 30
--- NOTE | 2024-08-27 16:19 | P.CONS ---
History of Present Illness - Reason for Consult Consult date: 08/27/24 Medical management - History of Present Illness History of present illness; patient 49-year-old gentleman past medical history significant for DVT open in the ER because of abdominal pain. Patient states that he was been having intermittent normal pain for the last week, patient admitted taking Motrin for this. Over the last 24 hours, patient pain worsened, patient was complaining of nausea as well. Because of abdominal pain, patient came to the ER Initial lab work done in the ER showed WBC 12.28, hemoglobin 19.5, platelet count 320, sodium 133, potassium 4, BUN 7, creatinine 1.19, AST 52, ALT 40 CT thoracic aorta done showed free abdominal area most notably around the liver, most likely perforated viscus Patient admitted to surgery and was taken for exploratory laparotomy. Internal medicine team were consulted for medical management REVIEW OF SYSTEMS: CONSTITUTIONAL: No fever, no malaise, no fatigue. HEENT: No recent visual problems or hearing problems. Denied any sore throat. CARDIOVASCULAR: No chest pain, orthopnea, PND, no palpitations, no syncope. PULMONARY: No shortness of breath, no cough, no hemoptysis. GASTROINTESTINAL: Mentioned NEUROLOGICAL: No headaches, no weakness, no numbness. HEMATOLOGICAL: Denies any bleeding or petechiae. GENITOURINARY: Denies any burning micturition, frequency, or urgency. MUSCULOSKELETAL/RHEUMATOLOGICAL: Denies any joint pain, swelling, or any muscle pain. ENDOCRINE: Denies any polyuria or polydipsia. The rest of the 14-point review of systems is negative. PHYSICAL EXAMINATION: GENERAL: The patient is alert and oriented x3, not in any acute distress. Well developed, well nourished. HEENT: Pupils are round and equally reacting to light. EOMI. No scleral icterus. No conjunctival pallor. Normocephalic, atraumatic. No pharyngeal erythema. No thyromegaly. CARDIOVASCULAR: S1 and S2 present. No murmurs, rubs, or gallops. PULMONARY: Chest is clear to auscultation, no wheezing or crackles. ABDOMEN: Laparotomy surgical incision seen, drain in place MUSCULOSKELETAL: No joint swelling or deformity. EXTREMITIES: No cyanosis, clubbing, or pedal edema. NEUROLOGICAL: Gross neurological examination did not reveal any focal deficits. SKIN: No rashes. Assessment and plan Abdominal pain Perforated gastric ulcer status postexploratory laparotomy with modified Luis Carlos repair patch of perforated gastric ulcer Peritonitis Monitor vital signs Monitor CBC Monitor CMP Status post exploratory laparotomy with modified Luis Carlos repair patch of p erforated gastric ulcer Continue IV fluids Continue pain management Continue IV Zosyn and Diflucan ID following Surgery following Labs and medication were reviewed.. Continue same treatment. Continue with symptomatic treatment. Resume home medication. Monitor labs and vitals. DVT and GI prophylaxis. Further recommendations as per clinical course of the patient Dictation was produced using [employer] dictation software. please excuse any grammatical, word or spelling errors. Past Medical History Past Medical History: No Reported History Additional Past Medical History / Comment(s): blood clot left arm History of Any Multi-Drug Resistant Organisms: None Reported Past Surgical History: Orthopedic Surgery Additional Past Surgical History / Comment(s): leg Past Anesthesia/Blood Transfusion Reactions: No Reported Reaction Past Psychological History: No Psychological Hx Reported Past Alcohol Use History: Occasional Past Drug Use History: None Reported - Past Family History Mother Family Medical History: Dementia Father Family Medical History: Cancer Additional Family Medical History / Comment(s): melanoma Medications and Allergies Home Medications Medication Instructions Recorded Confirmed Type No Known Home Medications 08/26/24 08/26/24 History Allergies Allergy/AdvReac Type Severity Reaction Status Date / Time No Known Allergies Allergy Verified 08/26/24 15:25 Physical Exam Vitals: Vital Signs Temp Pulse Resp BP Pulse Ox 08/27/24 14:47 97.7 F 88 18 128/82 96 08/27/24 08:00 98.3 F 75 16 133/82 93 L 08/27/24 02:10 82 18 08/27/24 00:43 97.9 F 77 20 108/70 91 L 08/26/24 19:35 98.6 F 82 18 134/83 92 L Intake and Output 08/27/24 08/27/24 08/27/24 06:59 14:59 22:59 Intake Total 650 Output Total 40 40 Balance -40 610 Intake: IV 650 Lactated Ringers 1,000 ml 650 @ 130 mls/hr IV .Q7H42M [facility] Rx#:[id number] Output: Drainage 40 40 Right Abdomen 40 40 Other: Voiding Method Indwelling Catheter Weight 96 kg Results CBC & Chem 7: 08/27/24 05:04 08/27/24 05:04 Labs: Abnormal Lab Results - Last 24 Hours (Table) 08/27/24 08/27/24 Range/Units 05:04 05:04 WBC 15.97 H (4.50-10.00) X 10*3/uL MCV 100.0 H (80.0-97.0) FL MCH 33.6 H (27.0-32.0) pg Immature Gran # 0.10 H (0.00-0.04) X 10*3/uL Neutrophils # 13.84 H (1.80-7.70) X 10*3/uL Calcium 7.8 L (8.7-10.3) mg/dL Total Bilirubin 2.2 H (0.3-1.2) mg/dL AST 49 H (14-35) U/L Total Protein 4.6 L (6.2-8.2) g/dL Albumin 2.6 L (3.8-4.9) g/dL Albumin/Globulin Ratio 1.30 L (1.60-3.17) Ratio Microbiology - Last 24 Hours (Table) 08/25/24 23:50 Blood Culture - Preliminary Blood
[2024-08-28] MEDS: HYDROmorphone 0.5 MG/0.5 ML SYRINGE IVP PRN (04:08)
[2024-08-28] MEDS ORDERED: LORazepam 1 MG/0.5 ML VIAL IV PRN ×3 (12:04)
--- NOTE | 2024-08-28 13:11 | P.PN ---
Subjective Progress Note Date: 08/28/24 patient 49-year-old gentleman past medical history significant for DVT open in the ER because of abdominal pain. Patient states that he was been having intermittent normal pain for the last week, patient admitted taking Motrin for this. Over the last 24 hours, patient pain worsened, patient was complaining of nausea as well. Because of abdominal pain, patient came to the ER Initial lab work done in the ER showed WBC 12.28, hemoglobin 19.5, platelet count 320, sodium 133, potassium 4, BUN 7, creatinine 1.19, AST 52, ALT 40 CT thoracic aorta done showed free abdominal area most notably around the liver, most likely perforated viscus Patient admitted to surgery and was taken for exploratory laparotomy. Internal medicine team were consulted for medical management 08/28. Patient seen and examined. No acute issues overnight. Continues to be n.p.o., diet to be added per surgery vital signs stable REVIEW OF SYSTEMS: CONSTITUTIONAL: No fever, no malaise,. CARDIOVASCULAR: No chest pain, no palpitations, no syncope. PULMONARY: No shortness of breath, no cough, GASTROINTESTINAL: No diarrhea, no nausea, no vomiting, no abdominal pain. NEUROLOGICAL: No headaches, no weakness, PHYSICAL EXAMINATION: GENERAL: The patient is alert and oriented x3, not in any acute distress. Well developed, well nourished. HEENT: Pupils are round and equally reacting to light. EOMI. No scleral icterus. No conjunctival pallor. Normocephalic, atraumatic. No pharyngeal erythema. No thyromegaly. CARDIOVASCULAR: S1 and S2 present. No murmurs, rubs, or gallops. PULMONARY: Chest is clear to auscultation, no wheezing or crackles. ABDOMEN: Surgical incision seen, drain in place, MUSCULOSKELETAL: No joint swelling or deformity. EXTREMITIES: No cyanosis, clubbing, or pedal edema. NEUROLOGICAL: Gross neurological examination did not reveal any focal deficits. SKIN: No rashes. Assessment and plan Abdominal pain Perforated gastric ulcer status postexploratory laparotomy with modified Luis Carlos repair patch of perforated gastric ulcer Peritonitis Monitor vital signs Monitor CBC Monitor CMP Status post exploratory laparotomy with modified Luis Carlos repair patch of perforated gastric ulcer Continue pain management Continue IV Zosyn and Diflucan Currently n.p.o., diet to be added per surgery ID following Surgery following Labs and medication were reviewed.. Continue same treatment. Continue with symptomatic treatment. Resume home medication. Monitor labs and vitals. DVT and GI prophylaxis. Further recommendations as per clinical course of the patient Dictation was produced using [employer] dictation software. please excuse any grammatical, word or spelling errors. Objective - Vital Signs Vital signs: Vital Signs Temp 97.7 F 08/28/24 07:07 Pulse 80 08/28/24 07:07 Resp 17 08/28/24 07:07 BP 145/85 08/28/24 07:07 Pulse Ox 93 L 08/28/24 07:07 FiO2 Intake & Output 08/27/24 08/28/24 08/28/24 18:59 06:59 18:59 Intake Total 650 0 Output Total 780 200 125 Balance -130 -200 -125 Weight 95.5 kg Intake: IV 650 Lactated Ringers 1,000 ml 650 @ 130 mls/hr IV .Q7H42M [facility] Rx#:[id number] Oral 0 Output: Drainage 80 Right Abdomen 80 Urine 700 200 125 Uretheral (Smith) 700 100 Post Void Residual 0 Other: Voiding Method Indwelling Catheter # Voids 1 - Labs CBC & Chem 7: 08/27/24 05:04 08/27/24 05:04 Labs: Abnormal Lab Results - Last 24 Hours (Table) 08/27/24 Range/Units 05:04 Calcium 7.8 L (8.7-10.3) mg/dL Total Bilirubin 2.2 H (0.3-1.2) mg/dL AST 49 H (14-35) U/L Total Protein 4.6 L (6.2-8.2) g/dL Albumin 2.6 L (3.8-4.9) g/dL Albumin/Globulin Ratio 1.30 L (1.60-3.17) Ratio Microbiology - Last 24 Hours (Table) 08/25/24 23:50 Blood Culture - Preliminary Blood
[2024-08-28] MEDS: THIAMINE 100 MG/ML 2 ML VIAL IM STA (13:49)
[2024-08-28] MEDS: SODIUM CHLORIDE 0.9% 1,000 ML IV ONE (14:04)
--- NOTE | 2024-08-28 14:29 | P.PN ---
Subjective Progress Note Date: 08/28/24 SURGICAL PROGRESS NOTE CHIEF COMPLAINT: Perforated gastric ulcer HISTORY OF PRESENT ILLNESS: Patient is postop day #2 status post exploratory laparotomy with modified Luis Carlos repair patch of perforated gastric ulcer. Pain is controlled. Patient is complaining of irritation from the Smith catheter. He is having flatus. He has been up to ambulate. Afebrile. WBC is up from 12- 15. Hgb 16. AYAAN drain 40 mL serosanguineous output PHYSICAL EXAM: VITAL SIGNS: Reviewed. GENERAL: Well-developed in no acute distress. HEENT: No sclera icterus. Extraocular movements grossly intact. Moist buccal mucosa. Head is atraumatic, normocephalic. ABDOMEN: Soft. Nondistended. Prevena wound VAC intact. AYAAN drain serosanguineous output NEUROLOGIC: Alert and oriented. Cranial nerves II through XII grossly intact. ASSESSMENT: 1. Perforated gastric ulcer PLAN: - Discontinue Smith catheter - Continue to monitor strict I's and O's. Urine output has been low. 1 L fluid bolus has been ordered - Continue IV fluids - Keep patient n.p.o. 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 Signing provider agrees with the documented findings, assessment, and plan of care. Objective - Vital Signs Vital signs: Vital Signs Temp 97.7 F 08/28/24 07:07 Pulse 80 08/28/24 07:07 Resp 18 08/28/24 13:37 BP 145/85 08/28/24 07:07 Pulse Ox 93 L 08/28/24 07:07 FiO2 Intake & Output 08/27/24 08/28/24 08/28/24 18:59 06:59 18:59 Intake Total 650 0 Output Total 780 200 125 Balance -130 -200 -125 Weight 95.5 kg Intake: IV 650 Lactated Ringers 1,000 ml 650 @ 130 mls/hr IV .Q7H42M [facility] Rx#:[id number] Oral 0 Output: Drainage 80 Right Abdomen 80 Urine 700 200 125 Uretheral (Smith) 700 100 Post Void Residual 0 Other: Voiding Method Indwelling Catheter Indwelling Catheter # Voids 1 2 - Labs CBC & Chem 7: 08/27/24 05:04 08/27/24 05:04 Labs: Microbiology - Last 24 Hours (Table) 08/25/24 23:50 Blood Culture - Preliminary Blood
[2024-08-28] MEDS: diphenhydrAMINE 50 MG/ML 1 ML VIAL IVP STA (22:51)
[2024-08-29 08:08] LABS: Basophils # (A) 0.05 X 10*3/uL (0.00-0.10); Basophils % (A) 0.4 %; Eosinophils # (A) 0.43 X 10*3/uL (0.04-0.35); Eosinophils % (A) 3.8 %; HCT 45.8 % (39.6-50.0); HGB 15.4 g/dL (13.0-17.0); Lymphocytes # (A) 0.86 X 10*3/uL (0.90-5.00); Lymphocytes % (A) 7.6 %; MCH 33.9 pg (27.0-32.0); MCHC 33.6 g/dL (32.0-37.0); MCV 100.9 FL (80.0-97.0); Mean Platelet Volume 9.9 FL (9.5-12.2); Monocytes # (A) 0.61 X 10*3/uL (0.20-1.00); Monocytes % (A) 5.4 %; NRBC Per 100 WBC 0 X 10*3/uL (0.00-0.01); Neutrophils # (A) 9.25 X 10*3/uL (1.80-7.70); Neutrophils % (A) 82.3 %; Platelet Count 219 X 10*3/uL (140-440); RBC 4.54 X 10*6/uL (4.40-5.60); RDW 13.7 % (11.5-14.5); WBC 11.26 X 10*3/uL (4.50-10.00)
--- NOTE | 2024-08-29 08:08 | P.PN ---
Subjective Progress Note Date: 08/28/24 Principal diagnosis: Reason for follow-up is perforated peptic ulcer disease/peritonitis Patient is a 49-year-old male with DVT to the upper extremity, presenting to the hospital for evaluation of abdominal pain concerning of abdominal pain has been diagnosed with perforated gastric ulcer status post expiratory laparotomy with modified Luis Carlos patch repair. On today's evaluation that is 08/28/2024, Patient is afebrile this morning patient denies having any chest pain shortness of breath or cough, the patient is currently on room air, patient denies any nausea or vomiting abdominal pain is currently controlled. Patient did not have lab draw today blood culture has been negative so far Objective - Vital Signs Vital signs: Vital Signs Temp 98.1 F 08/28/24 14:21 Pulse 82 08/28/24 14:21 Resp 16 08/28/24 14:21 BP 150/87 08/28/24 14:21 Pulse Ox 93 L 08/28/24 14:21 FiO2 Intake & Output 08/27/24 08/28/24 08/28/24 18:59 06:59 18:59 Intake Total 650 0 Output Total 780 200 125 Balance -130 -200 -125 Weight 95.5 kg Intake: IV 650 Lactated Ringers 1,000 ml 650 @ 130 mls/hr IV .Q7H42M [facility] Rx#:[id number] Oral 0 Output: Drainage 80 Right Abdomen 80 Urine 700 200 125 Uretheral (Smith) 700 100 Post Void Residual 0 Other: Voiding Method Indwelling Catheter Indwelling Catheter # Voids 1 2 - Exam GENERAL DESCRIPTION: Middle-age male lying in bed in no distress RESPIRATORY SYSTEM: Unlabored breathing , decreased breath sounds at bases HEART: S1 S2 regular rate and rhythm , ABDOMEN: Soft , mild tenderness EXTREMITIES: No edema feet - Labs CBC & Chem 7: 08/27/24 05:04 08/27/24 05:04 Labs: Microbiology - Last 24 Hours (Table) 08/25/24 23:50 Blood Culture - Preliminary Blood Assessment and Plan (1) Sepsis Current Visit: Yes Status: Acute Code(s): A41.9 - SEPSIS, UNSPECIFIED ORGANISM SNOMED Code(s): 74014717 (2) Perforated gastric ulcer Current Visit: Yes Status: Acute Code(s): K25.5 - CHRONIC OR UNSPECIFIED GASTRIC ULCER WITH PERFORATION SNOMED Code(s): 0385982 (3) Peritonitis Current Visit: Yes Status: Acute Code(s): K65.9 - PERITONITIS, UNSPECIFIED SNOMED Code(s): 06471709 Plan: 1 Patient presented to the hospital with sepsis in this patient who did have tachycardia elevated white count meeting criteria for SIRS cirrhosis perforated gastric ulcer and no need for for the enteric gram-negative as well as Bette to be the likely pathogen less likely gram-positive infection 2-patient remains to be afebrile and no CBC was done today he will continue Zosyn Diflucan repeat CBC with a.m. lab Dictation was produced using [employer] dictation software. please excuse any grammatical, word or spelling errors. Time with Patient: Less than 30
[2024-08-29 08:11] LABS: BUN/Creat Ratio 19.56 Ratio (12.00-20.00); Blood Urea Nitrogen 17.6 mg/dL (9.0-27.0); Carbon Dioxide 18.8 mmol/L (21.6-31.8); Chloride 106 mmol/L (96-109); Glucose 65 mg/dL (70-110); Potassium 3.8 mmol/L (3.5-5.5); Sodium 138 mmol/L (135-145)
--- NOTE | 2024-08-29 12:24 | P.PN ---
Subjective Progress Note Date: 08/29/24 SURGICAL PROGRESS NOTE CHIEF COMPLAINT: Perforated gastric ulcer HISTORY OF PRESENT ILLNESS: Patient is postop day #3 status post exploratory laparotomy with modified Luis Carlos repair patch of perforated gastric ulcer. Pain is controlled. Smith catheter removed yesterday. Denies any difficulty urinating. Urine output improved. Patient did have a bowel movement. Has had flatus. Afebrile. WBC 15 ewon to 11.26 AYAAN drain serosanguineous 40 mL output. PHYSICAL EXAM: VITAL SIGNS: Reviewed. GENERAL: Well-developed in no acute distress. HEENT: No sclera icterus. Extraocular movements grossly intact. Moist buccal mucosa. Head is atraumatic, normocephalic. ABDOMEN: Soft. Nondistended. Prevena wound VAC intact. AYAAN drain serosanguineous output NEUROLOGIC: Alert and oriented. Cranial nerves II through XII grossly intact. ASSESSMENT: 1. Perforated gastric ulcer PLAN: -Advance diet to clear liquids okay for coffee - Continue IV fluids -Continue antibiotics - CIWA protocol ordered for history of alcohol use. Start multivitamin and thiamine - Continue antibiotics and Protonix -Encourage patient to ambulate - DVT prophylaxis Lovenox Physician Generator Mechanic note has been reviewed by physician. Signing provider agrees with the documented findings, assessment, and plan of care. Objective - Vital Signs Vital signs: Vital Signs Temp 97.8 F 08/29/24 07:41 Pulse 66 08/29/24 07:41 Resp 18 08/29/24 11:23 BP 139/76 08/29/24 07:41 Pulse Ox 96 08/29/24 07:41 FiO2 Intake & Output 08/28/24 08/29/24 08/29/24 18:59 06:59 18:59 Intake Total 2560 Output Total 375 615 300 Balance 2185 -615 -300 Weight 95 kg Intake: Intake, IV Titration 2560 Amount Sodium Chloride 0.9% 1, 2560 000 ml @ 999 mls/hr IV . Q1H1M [facility] Rx#:[id number] Output: Drainage 40 Right Abdomen 40 Urine 225 575 300 Post Void Residual 150 Other: Voiding Method Indwelling Catheter Urinal Urinal # Voids 2 - Labs CBC & Chem 7: 08/29/24 03:58 08/29/24 03:58 Labs: Abnormal Lab Results - Last 24 Hours (Table) 08/29/24 08/29/24 Range/Units 03:58 03:58 WBC 11.26 H (4.50-10.00) X 10*3/uL MCV 100.9 H (80.0-97.0) FL MCH 33.9 H (27.0-32.0) pg Immature Gran # 0.06 H (0.00-0.04) X 10*3/uL Neutrophils # 9.25 H (1.80-7.70) X 10*3/uL Lymphocytes # 0.86 L (0.90-5.00) X 10*3/uL Eosinophils # 0.43 H (0.04-0.35) X 10*3/uL Carbon Dioxide 18.8 L (21.6-31.8) mmol/L Anion Gap 13.20 H (4.00-12.00) mmol/L Glucose 65 L (70-110) mg/dL Calcium 8.0 L (8.7-10.3) mg/dL Microbiology - Last 24 Hours (Table) 08/25/24 23:50 Blood Culture - Preliminary Blood
[2024-08-29] MEDS: MULTIVITAMINS, THERA 1 EACH TAB PO SCH (13:53)
[2024-08-29] MEDS: THIAMINE 100 MG TAB PO SCH (13:53)
--- NOTE | 2024-08-29 14:21 | P.PN ---
Subjective Progress Note Date: 08/29/24 patient 49-year-old gentleman past medical history significant for DVT open in the ER because of abdominal pain. Patient states that he was been having intermittent normal pain for the last week, patient admitted taking Motrin for this. Over the last 24 hours, patient pain worsened, patient was complaining of nausea as well. Because of abdominal pain, patient came to the ER Initial lab work done in the ER showed WBC 12.28, hemoglobin 19.5, platelet count 320, sodium 133, potassium 4, BUN 7, creatinine 1.19, AST 52, ALT 40 CT thoracic aorta done showed free abdominal area most notably around the liver, most likely perforated viscus Patient admitted to surgery and was taken for exploratory laparotomy. Internal medicine team were consulted for medical management 08/28. Patient seen and examined. No acute issues overnight. Continues to be n.p.o., diet to be added per surgery vital signs . Patient seen examined. States she feels much better, passing gas. Currently on clear liquid diet REVIEW OF SYSTEMS: CONSTITUTIONAL: No fever, no malaise,. CARDIOVASCULAR: No chest pain, no palpitations, no syncope. PULMONARY: No shortness of breath, no cough, GASTROINTESTINAL: No diarrhea, no nausea, no vomiting, no abdominal pain. NEUROLOGICAL: No headaches, no weakness, PHYSICAL EXAMINATION: GENERAL: The patient is alert and oriented x3, not in any acute distress. Well developed, well nourished. HEENT: Pupils are round and equally reacting to light. EOMI. No scleral icterus. No conjunctival pallor. Normocephalic, atraumatic. No pharyngeal erythema. No thyromegaly. CARDIOVASCULAR: S1 and S2 present. No murmurs, rubs, or gallops. PULMONARY: Chest is clear to auscultation, no wheezing or crackles. ABDOMEN: Surgical incision seen, drain in place, MUSCULOSKELETAL: No joint swelling or deformity. EXTREMITIES: No cyanosis, clubbing, or pedal edema. NEUROLOGICAL: Gross neurological examination did not reveal any focal deficits. SKIN: No rashes. Assessment and plan Abdominal pain Perforated gastric ulcer status postexploratory laparotomy with modified Luis Carlos repair patch of perforated gastric ulcer Peritonitis Monitor vital signs Monitor CBC Monitor CMP Status post exploratory laparotomy with modified Luis Carlos repair patch of perforated gastric ulcer Continue pain management Continue IV Zosyn and Diflucan Currently on clear liquid diet, diet to be advanced per surgeon ID following Surgery following Labs and medication were reviewed.. Continue same treatment. Continue with symptomatic treatment. Resume home medication. Monitor labs and vitals. DVT and GI prophylaxis. Further recommendations as per clinical course of the patient Dictation was produced using [employer] dictation software. please excuse any grammatical, word or spelling errors. Objective - Vital Signs Vital signs: Vital Signs Temp 97.8 F 08/29/24 07:41 Pulse 66 08/29/24 07:41 Resp 18 08/29/24 11:23 BP 139/76 08/29/24 07:41 Pulse Ox 96 08/29/24 07:41 FiO2 Intake & Output 08/28/24 08/29/24 08/29/24 18:59 06:59 18:59 Intake Total 2560 Output Total 375 615 300 Balance 2185 -615 -300 Weight 95 kg Intake: Intake, IV Titration 2560 Amount Sodium Chloride 0.9% 1, 2560 000 ml @ 999 mls/hr IV . Q1H1M [facility] Rx#:[id number] Output: Drainage 40 Right Abdomen 40 Urine 225 575 300 Post Void Residual 150 Other: Voiding Method Indwelling Catheter Urinal Urinal # Voids 2 - Labs CBC & Chem 7: 08/29/24 03:58 08/29/24 03:58 Labs: Abnormal Lab Results - Last 24 Hours (Table) 08/29/24 08/29/24 Range/Units 03:58 03:58 WBC 11.26 H (4.50-10.00) X 10*3/uL MCV 100.9 H (80.0-97.0) FL MCH 33.9 H (27.0-32.0) pg Immature Gran # 0.06 H (0.00-0.04) X 10*3/uL Neutrophils # 9.25 H (1.80-7.70) X 10*3/uL Lymphocytes # 0.86 L (0.90-5.00) X 10*3/uL Eosinophils # 0.43 H (0.04-0.35) X 10*3/uL Carbon Dioxide 18.8 L (21.6-31.8) mmol/L Anion Gap 13.20 H (4.00-12.00) mmol/L Glucose 65 L (70-110) mg/dL Calcium 8.0 L (8.7-10.3) mg/dL Microbiology - Last 24 Hours (Table) 08/25/24 23:50 Blood Culture - Preliminary Blood
[2024-08-29 14:42] LABS: Basophils # (A) 0.06 X 10*3/uL (0.00-0.10); Basophils % (A) 0.5 %; Eosinophils % (A) 3.4 %; HCT 45.6 % (39.6-50.0); HGB 15.3 g/dL (13.0-17.0); Lymphocytes # (A) 1.25 X 10*3/uL (0.90-5.00); Lymphocytes % (A) 10.5 %; MCHC 33.6 g/dL (32.0-37.0); MCV 101.3 FL (80.0-97.0); Mean Platelet Volume 10.2 FL (9.5-12.2); Monocytes # (A) 0.69 X 10*3/uL (0.20-1.00); Monocytes % (A) 5.8 %; NRBC Per 100 WBC 0 X 10*3/uL (0.00-0.01); Neutrophils # (A) 9.46 X 10*3/uL (1.80-7.70); Neutrophils % (A) 79.1 %; Platelet Count 225 X 10*3/uL (140-440); RDW 13.6 % (11.5-14.5); WBC 11.94 X 10*3/uL (4.50-10.00)
--- NOTE | 2024-08-29 15:17 | P.PN ---
Subjective Progress Note Date: 08/29/24 Principal diagnosis: Reason for follow-up is perforated peptic ulcer disease/peritonitis Patient is a 49-year-old male with DVT to the upper extremity, presenting to the hospital for evaluation of abdominal pain concerning of abdominal pain has been diagnosed with perforated gastric ulcer status post expiratory laparotomy with modified Luis Carlos patch repair. On today's evaluation that is 08/29/2024,the patient denies any fever or any chills, patient is breathing comfortably on room air, the patient denies chest pain shortness of breath and no significant cough, patient abdominal pain is currently controlled no nausea vomiting or diarrhea. Patient white count is down to 11.94 creatinine 0.9 blood culture has been negative Objective - Vital Signs Vital signs: Vital Signs Temp 97.8 F 08/29/24 07:41 Pulse 66 08/29/24 07:41 Resp 18 08/29/24 11:23 BP 139/76 08/29/24 07:41 Pulse Ox 96 08/29/24 07:41 FiO2 Intake & Output 08/28/24 08/29/24 08/29/24 18:59 06:59 18:59 Intake Total 2560 Output Total 375 615 300 Balance 2185 -615 -300 Weight 95 kg Intake: Intake, IV Titration 2560 Amount Sodium Chloride 0.9% 1, 2560 000 ml @ 999 mls/hr IV . Q1H1M [facility] Rx#:[id number] Output: Drainage 40 Right Abdomen 40 Urine 225 575 300 Post Void Residual 150 Other: Voiding Method Indwelling Catheter Urinal Urinal # Voids 2 - Exam GENERAL DESCRIPTION: Middle-age male lying in bed in no distress RESPIRATORY SYSTEM: Unlabored breathing , decreased breath sounds at bases HEART: S1 S2 regular rate and rhythm , ABDOMEN: Soft , mild tenderness EXTREMITIES: No edema feet - Labs CBC & Chem 7: 08/29/24 08:40 08/29/24 03:58 Labs: Abnormal Lab Results - Last 24 Hours (Table) 08/29/24 08/29/24 Range/Units 03:58 03:58 WBC 11.26 H (4.50-10.00) X 10*3/uL MCV 100.9 H (80.0-97.0) FL MCH 33.9 H (27.0-32.0) pg Immature Gran # 0.06 H (0.00-0.04) X 10*3/uL Neutrophils # 9.25 H (1.80-7.70) X 10*3/uL Lymphocytes # 0.86 L (0.90-5.00) X 10*3/uL Eosinophils # 0.43 H (0.04-0.35) X 10*3/uL Carbon Dioxide 18.8 L (21.6-31.8) mmol/L Anion Gap 13.20 H (4.00-12.00) mmol/L Glucose 65 L (70-110) mg/dL Calcium 8.0 L (8.7-10.3) mg/dL Microbiology - Last 24 Hours (Table) 08/25/24 23:50 Blood Culture - Preliminary Blood Assessment and Plan (1) Sepsis Current Visit: Yes Status: Acute Code(s): A41.9 - SEPSIS, UNSPECIFIED ORGANISM SNOMED Code(s): 10610721 (2) Perforated gastric ulcer Current Visit: Yes Status: Acute Code(s): K25.5 - CHRONIC OR UNSPECIFIED GASTRIC ULCER WITH PERFORATION SNOMED Code(s): 9483096 (3) Peritonitis Current Visit: Yes Status: Acute Code(s): K65.9 - PERITONITIS, UNSPECIFIED SNOMED Code(s): 01159813 Plan: 1 Patient presented to the hospital with sepsis in this patient who did have tachycardia elevated white count meeting criteria for SIRS cirrhosis perforated gastric ulcer and no need for for the enteric gram-negative as well as Bette to be the likely pathogen less likely gram-positive infection 2-patient remains to be afebrile and white count is trending down 3patient to continue with Zosyn and Diflucan while inpatient and monitor clinical course closely Dictation was produced using [employer] dictation software. please excuse any grammatical, word or spelling errors. Time with Patient: Less than 30
[2024-08-29] MEDS: diphenhydrAMINE 25 MG CAP PO PRN (19:56)
[2024-08-29] MEDS ORDERED: HYDROmorphone 1 MG/ML 1 ML SYRINGE IVP PRN (20:19)
--- NOTE | 2024-08-30 14:16 | P.PN ---
Subjective Progress Note Date: 08/30/24 SURGICAL PROGRESS NOTE CHIEF COMPLAINT: Perforated gastric ulcer HISTORY OF PRESENT ILLNESS: Patient is postop day #4 status post exploratory laparotomy with modified Luis Carlos repair patch of perforated gastric ulcer. Pain is controlled. Patient reports having bowel movement. Denies any nausea or vomiting. Afebrile. AYAAN drain 20 mL serosanguineous output. WBC 11.94 PHYSICAL EXAM: VITAL SIGNS: Reviewed. GENERAL: Well-developed in no acute distress. HEENT: No sclera icterus. Extraocular movements grossly intact. Moist buccal mucosa. Head is atraumatic, normocephalic. ABDOMEN: Soft. Nondistended. Prevena wound VAC intact. AYAAN drain serosanguineous output NEUROLOGIC: Alert and oriented. Cranial nerves II through XII grossly intact. ASSESSMENT: 1. Perforated gastric ulcer PLAN: -Advance diet to full liquids. No carbonated beverages -Patient will continue full liquid diet after discharge -Continue antibiotics -Anticipate possible discharge on Wednesday -[facility] protocol ordered for history of alcohol use. Continue multivitamin and thiamine -Continue PPI -Encourage patient to ambulate - DVT prophylaxis [facility] Physician First Assist note has been reviewed by physician. Signing provider agrees with the documented findings, assessment, and plan of care. Objective - Vital Signs Vital signs: Vital Signs Temp 98.7 F 08/30/24 07:23 Pulse 69 08/30/24 07:23 Resp 16 08/30/24 07:23 BP 158/93 08/30/24 07:23 Pulse Ox 96 08/30/24 07:23 FiO2 Intake & Output 08/29/24 08/30/24 08/30/24 18:59 06:59 18:59 Intake Total 250 180 Output Total 300 1020 Balance -50 -840 Weight 95.5 kg Intake: Oral 250 180 Output: Drainage 120 Right Abdomen 120 Urine 300 900 Other: Voiding Method Urinal Urinal # Voids 3 - Labs CBC & Chem 7: 08/29/24 08:40 08/29/24 03:58 Labs: Abnormal Lab Results - Last 24 Hours (Table) 08/29/24 Range/Units 08:40 WBC 11.94 H (4.50-10.00) X 10*3/uL MCV 101.3 H (80.0-97.0) FL MCH 34.0 H (27.0-32.0) pg Immature Gran # 0.08 H (0.00-0.04) X 10*3/uL Neutrophils # 9.46 H (1.80-7.70) X 10*3/uL Eosinophils # 0.40 H (0.04-0.35) X 10*3/uL Microbiology - Last 24 Hours (Table) 08/25/24 23:50 Blood Culture - Preliminary Blood
[2024-08-30] MEDS ORDERED: BENZOCAINE/MENTHOL LOZENG 1 EACH LOZENGE MUCOUS MEM PRN (15:17)
--- NOTE | 2024-08-30 15:19 | P.PN ---
Subjective Progress Note Date: 08/30/24 patient 49-year-old gentleman past medical history significant for DVT open in the ER because of abdominal pain. Patient states that he was been having intermittent normal pain for the last week, patient admitted taking Motrin for this. Over the last 24 hours, patient pain worsened, patient was complaining of nausea as well. Because of abdominal pain, patient came to the ER Initial lab work done in the ER showed WBC 12.28, hemoglobin 19.5, platelet count 320, sodium 133, potassium 4, BUN 7, creatinine 1.19, AST 52, ALT 40 CT thoracic aorta done showed free abdominal area most notably around the liver, most likely perforated viscus Patient admitted to surgery and was taken for exploratory laparotomy. Internal medicine team were consulted for medical management 08/28. Patient seen and examined. No acute issues overnight. Continues to be n.p.o., diet to be added per surgery vital signs stable /29. Patient seen examined. States she feels much better, passing gas. Currently on clear liquid diet 08/30/2024 Patient is eval seen in follow-up in the medical floor. He is not having much abdominal pain. Abdominal binder is in place. He is currently on a clear liquid diet. He does complain of some cough nonproductive. He is using the incentive spirometer at the bedside. He continues on IV fluconazole as well as IV Zosyn. Labs today reveal a white blood cell count 11.94, hemoglobin 15.3. Cultures negative so far. REVIEW OF SYSTEMS: CONSTITUTIONAL: No fever, no malaise,. CARDIOVASCULAR: No chest pain, no palpitations, no syncope. PULMONARY: No shortness of breath, no cough, GASTROINTESTINAL: No diarrhea, no nausea, no vomiting, no abdominal pain. NEUROLOGICAL: No headaches, no weakness, PHYSICAL EXAMINATION: GENERAL: The patient is alert and oriented x3, not in any acute distress. Well developed, well nourished. HEENT: Pupils are round and equally reacting to light. EOMI. No scleral icterus. No conjunctival pallor. Normocephalic, atraumatic. No pharyngeal erythema. No thyromegaly. CARDIOVASCULAR: S1 and S2 present. No murmurs, rubs, or gallops. PULMONARY: Chest is clear to auscultation, no wheezing or crackles. ABDOMEN: Surgical incision seen, drain in place, MUSCULOSKELETAL: No joint swelling or deformity. EXTREMITIES: No cyanosis, clubbing, or pedal edema. NEUROLOGICAL: Gross neurological examination did not reveal any focal deficits. SKIN: No rashes. Assessment and plan Abdominal pain Perforated gastric ulcer status postexploratory laparotomy with modified Luis Carlos repair patch of perforated gastric ulcer Peritonitis Chronic nicotine use DVT prophylaxis: Lovenox Full Code Plan Monitor vital signs Monitor CBC Monitor CMP Status post exploratory laparotomy with modified Luis Carlos repair patch of perforated gastric ulcer Continue pain management Continue IV Zosyn and Diflucan Currently on clear liquid diet, diet to be advanced per surgeon ID following Surgery following Dictation was produced using [employer] dictation software. please excuse any grammatical, word or spelling errors. The impression and plan of care has been dictated by Rashida Shipman, Nurse Practitioner as directed. Dr. Cameron MD I have performed a history and physical examination and medical decision making of this patient, discussed the same with the dictator, and agree with the dictators assessment and plan as written, documented as a scribe. Based on total visit time, I have performed more than 50% of this visit. Objective - Vital Signs Vital signs: Vital Signs Temp 98.0 F 08/30/24 14:06 Pulse 71 08/30/24 14:06 Resp 16 08/30/24 14:06 BP 164/96 08/30/24 14:06 Pulse Ox 96 08/30/24 14:06 FiO2 Intake & Output 08/29/24 08/30/24 08/30/24 18:59 06:59 18:59 Intake Total 250 180 Output Total 300 1020 Balance -50 -840 Weight 95.5 kg Intake: Oral 250 180 Output: Drainage 120 Right Abdomen 120 Urine 300 900 Other: Voiding Method Urinal Urinal # Voids 3 - Labs CBC & Chem 7: 08/29/24 08:40 08/29/24 03:58 Labs: Microbiology - Last 24 Hours (Table) 08/25/24 23:50 Blood Culture - Preliminary Blood Assessment and Plan Time with Patient: Less than 30
--- NOTE | 2024-08-30 17:19 | P.PN ---
Subjective Progress Note Date: 08/30/24 Principal diagnosis: Reason for follow-up is perforated peptic ulcer disease/peritonitis Patient is a 49-year-old male with DVT to the upper extremity, presenting to the hospital for evaluation of abdominal pain concerning of abdominal pain has been diagnosed with perforated gastric ulcer status post expiratory laparotomy with modified Luis Carlos patch repair. On today's evaluation that is 08/30/2024,the patient remains to be afebrile, patient is on room air not requiring supplemental oxygen and denies any shortness of breath no chest pain or cough.Patient denies having any nausea or vomiting, no abdominal pain and no diarrhea. Patient did not have any lab draw today blood cultures remain negative Objective - Vital Signs Vital signs: Vital Signs Temp 98.0 F 08/30/24 14:06 Pulse 71 08/30/24 14:06 Resp 16 08/30/24 14:06 BP 164/96 08/30/24 14:06 Pulse Ox 96 08/30/24 14:06 FiO2 Intake & Output 08/29/24 08/30/24 08/30/24 18:59 06:59 18:59 Intake Total 250 180 Output Total 300 1020 Balance -50 -840 Weight 95.5 kg Intake: Oral 250 180 Output: Drainage 120 Right Abdomen 120 Urine 300 900 Other: Voiding Method Urinal Urinal # Voids 3 - Exam GENERAL DESCRIPTION: Middle-age male lying in bed in no distress RESPIRATORY SYSTEM: Unlabored breathing , decreased breath sounds at bases HEART: S1 S2 regular rate and rhythm , ABDOMEN: Soft , mild tenderness EXTREMITIES: No edema feet - Labs CBC & Chem 7: 08/29/24 08:40 08/29/24 03:58 Assessment and Plan (1) Sepsis Current Visit: Yes Status: Acute Code(s): A41.9 - SEPSIS, UNSPECIFIED ORGANISM SNOMED Code(s): 70116457 (2) Perforated gastric ulcer Current Visit: Yes Status: Acute Code(s): K25.5 - CHRONIC OR UNSPECIFIED GASTRIC ULCER WITH PERFORATION SNOMED Code(s): 1578175 (3) Peritonitis Current Visit: Yes Status: Acute Code(s): K65.9 - PERITONITIS, UNSPECIFIED SNOMED Code(s): 22543730 Plan: 1 Patient presented to the hospital with sepsis in this patient who did have tachycardia elevated white count meeting criteria for SIRS cirrhosis perforated gastric ulcer and no need for for the enteric gram-negative as well as Bette to be the likely pathogen less likely gram-positive infection 2-patient remains to be afebrile and white count is trending down as of yesterday no lab work today 3patient to continue with Zosyn and Diflucan while inpatient and hopefully transition to oral antibiotics on discharge Dictation was produced using [employer] dictation software. please excuse any grammatical, word or spelling errors.
--- NOTE | 2024-08-30 21:20 | CDI ---
Date: 08/30/2024 From: Swapna [email or web address] Email: [email or web address] Admit Date: 08/26/2024 01:02:00 AM Patient Name: Iglesia Lopez Visit Number: [id number] Discharge Date: N/A ATTENTION: The Clinical Documentation Specialists (CDI) and [facility] Coding Staff appreciate your assistance in clarifying documentation. Please respond to the clarification below the line at the bottom and electronically sign. The CDI & [facility] Coding staff will review the response and follow-up if needed. Please note: Queries are made part of the Legal Health Record. If you have any questions, please contact the author of this message via ITS. Dr. Frank Pelaez, Patient presented to the hospital with sepsis is documented in your Consult Note on 08/26/2024 - which may lack sufficient clinical evidence/support in the medical record. Additional clarification is requested. History/Risk Factors: 49-year-old male presented to [facility] ED for evaluation due to progressive abdominal pain. PMH: Left upper extremity DVT Clinical Indicators: Documentation Location: Electronic Medical Record Vital Sign Trend: Date Time Temperature HR RR BP SpO2 08/25/2024 23:14 98.1 F (Oral) 78 18 169/103 96% on Room Air 08/26/2024 11:23 97.4 F (Oral) 100 N/A 142/89 93% on 2L NC 08/27/2024 08:00 98.3 F (Oral) 75 16 133/82 93% on Room Air 08/28/2024 07:07 97.7 F (Oral) 80 17 145/85 93% on Room Air 08/29/2024 07:41 97.8 F (Oral) 66 17 139/76 96% on Room Air 08/30/2024 07:23 98.7 F (Oral) 69 16 158/93 96% on Room Air Lab Results: 08/25/2024 08/27/2024 08/29/2024 08/30/2024 WBC 12.28 15.97 11.26 11.94 Other Clinical Indicators: Blood Cultures (Collected on 08/25/2024): No growth after 72 hours (Preliminary Results) Lactic Acid (08/25/2024): 2.0 Infectious Disease Progress Note (08/30/2024): o "Patient presented to the hospital with sepsis in this patient who did have tachycardia, elevated white count meeting criteria for SIRS o Perforated gastric ulcer o Peritonitis Treatment: Zosyn 3.375g IVPB Every 8 Hours Diflucan 200mg IVPB Daily Vancomycin 2000mg IVPB x 1 0.9% Sodium Chloride IV Bolus x 2 Liters Lactated Ringers IV Bolus x 1 Liter Lactated Ringers IV Infusion @ 130mL/hr. (Discontinued) Infectious Disease Consultation Other Treatments this Admission: Exploratory laparotomy with modified Luis Carlos repair patch of perforated gastric ulcer (08/26/2024) After work up and study, please clarify which diagnosis is most appropriate? [ x] Sepsis has been ruled out [ ] Sepsis (present on admission) is a valid diagnosis as evidenced by the following (please add rationale): [ ] Other, please specify [ ] Unable to determine SIRS Criteria (2 or more of the following may indicate SIRS): Temperature < 96.8F (36C) or > 101.0F (38.3C) Heart Rate > 90 bpm Respiratory Rate > 20 breaths/min or PaCO2 < 32 mmHg White Blood Cell Count > 12,000 or < 4,000 cells/mm3 or > 10% bands MTDD
[2024-08-30] MEDS: diphenhydrAMINE 25 MG CAP PO PRN (22:33)
[2024-08-31] MEDS: HYDROcodone/APAP 5-325MG 1 EACH TAB PO PRN (08:10)
[2024-08-31 08:43] LABS: Basophils # (A) 0.07 X 10*3/uL (0.00-0.10); Basophils % (A) 0.8 %; Eosinophils # (A) 0.48 X 10*3/uL (0.04-0.35); Eosinophils % (A) 5.6 %; HCT 44.6 % (39.6-50.0); HGB 15.4 g/dL (13.0-17.0); Lymphocytes # (A) 1.13 X 10*3/uL (0.90-5.00); Lymphocytes % (A) 13.3 %; MCH 33.9 pg (27.0-32.0); MCHC 34.5 g/dL (32.0-37.0); MCV 98.2 FL (80.0-97.0); Mean Platelet Volume 9.8 FL (9.5-12.2); Monocytes # (A) 0.97 X 10*3/uL (0.20-1.00); Monocytes % (A) 11.4 %; NRBC Per 100 WBC 0 X 10*3/uL (0.00-0.01); Neutrophils % (A) 68.2 %; Platelet Count 254 X 10*3/uL (140-440); RBC 4.54 X 10*6/uL (4.40-5.60); RDW 13.3 % (11.5-14.5); WBC 8.51 X 10*3/uL (4.50-10.00)
[2024-08-31 09:44] LABS: BUN/Creat Ratio 7.38 Ratio (12.00-20.00); Blood Urea Nitrogen 5.9 mg/dL (9.0-27.0); Carbon Dioxide 22.4 mmol/L (21.6-31.8); Chloride 103 mmol/L (96-109); Glucose 99 mg/dL (70-110); Potassium 3.6 mmol/L (3.5-5.5); Sodium 137 mmol/L (135-145)
--- NOTE | 2024-08-31 13:26 | P.PN ---
Subjective Progress Note Date: 08/31/24 SURGICAL PROGRESS NOTE CHIEF COMPLAINT: Perforated gastric ulcer HISTORY OF PRESENT ILLNESS: Patient is postop day #5 status post exploratory laparotomy with modified Luis Carlos repair patch of perforated gastric ulcer. Pain is controlled. Patient reports having bowel movement. Denies any nausea or vomiting. He is tolerating the full liquid diet. Afebrile. AYAAN drain 40 mL serosanguineous output. WBC has normalized from 11.9-8.51 Hgb 15.4 PHYSICAL EXAM: VITAL SIGNS: Reviewed. GENERAL: Well-developed in no acute distress. HEENT: No sclera icterus. Extraocular movements grossly intact. Moist buccal mucosa. Head is atraumatic, normocephalic. ABDOMEN: Soft. Nondistended. Prevena wound VAC intact. AYAAN drain serosanguineous output NEUROLOGIC: Alert and oriented. Cranial nerves II through XII grossly intact. ASSESSMENT: 1. Perforated gastric ulcer PLAN: -Continue full liquids. No carbonated beverages -Patient will continue full liquid diet after discharge -Iota added for oral pain medication -Continue antibiotics per ID -Anticipate possible discharge on Wednesday -[facility] protocol ordered for history of alcohol use. Continue multivitamin and thiamine -Continue PPI -Encourage patient to ambulate - DVT prophylaxis Lovenox Physician Wastewater Analyst Lab Analyst note has been reviewed by physician. Signing provider agrees with the documented findings, assessment, and plan of care. Objective - Vital Signs Vital signs: Vital Signs Temp 97.9 F 08/31/24 07:23 Pulse 66 08/31/24 07:23 Resp 16 08/31/24 07:23 BP 161/89 08/31/24 07:23 Pulse Ox 96 08/31/24 07:23 FiO2 Intake & Output 08/30/24 08/31/24 08/31/24 18:59 06:59 18:59 Intake Total 1440 Output Total 40 2150 Balance -40 -710 Intake: Oral 1440 Output: Drainage 40 Right Abdomen 40 Urine 2150 Other: # Voids 3 - Labs CBC & Chem 7: 08/31/24 04:35 08/31/24 04:35 Labs: Abnormal Lab Results - Last 24 Hours (Table) 08/31/24 08/31/24 Range/Units 04:35 04:35 MCV 98.2 H (80.0-97.0) FL MCH 33.9 H (27.0-32.0) pg Immature Gran # 0.06 H (0.00-0.04) X 10*3/uL Eosinophils # 0.48 H (0.04-0.35) X 10*3/uL BUN 5.9 L (9.0-27.0) mg/dL BUN/Creatinine Ratio 7.38 L (12.00-20.00) Ratio Calcium 8.0 L (8.7-10.3) mg/dL Microbiology - Last 24 Hours (Table) 08/25/24 23:50 Blood Culture - Final Blood
--- NOTE | 2024-08-31 21:43 | P.PN ---
Subjective Progress Note Date: 08/31/24 Principal diagnosis: Reason for follow-up is perforated peptic ulcer disease/peritonitis Patient is a 49-year-old male with DVT to the upper extremity, presenting to the hospital for evaluation of abdominal pain concerning of abdominal pain has been diagnosed with perforated gastric ulcer status post expiratory laparotomy with modified Luis Carlos patch repair. On today's evaluation that is 08/31/2024, the patient continues to be afebrile, the patient is on room air and breathing comfortably, the Pt denies having any chest pain or cough, the patient denies having any abdominal pain no vomiting or any diarrhea, mention feeling better. Patient white count is 8.51 creatinine 0.8 Objective - Vital Signs Vital signs: Vital Signs Temp 97.7 F 08/31/24 12:54 Pulse 70 08/31/24 12:54 Resp 16 08/31/24 12:54 BP 156/92 08/31/24 12:54 Pulse Ox 97 08/31/24 12:54 FiO2 Intake & Output 08/30/24 08/31/24 08/31/24 18:59 06:59 18:59 Intake Total 1440 Output Total 40 2150 300 Balance -40 -710 -300 Intake: Oral 1440 Output: Drainage 40 Right Abdomen 40 Urine 2150 300 Other: # Voids 3 - Exam GENERAL DESCRIPTION: Middle-age male lying in bed in no distress RESPIRATORY SYSTEM: Unlabored breathing , decreased breath sounds at bases HEART: S1 S2 regular rate and rhythm , ABDOMEN: Soft , mild tenderness EXTREMITIES: No edema feet - Labs CBC & Chem 7: 08/31/24 04:35 08/31/24 04:35 Labs: Abnormal Lab Results - Last 24 Hours (Table) 08/31/24 08/31/24 Range/Units 04:35 04:35 MCV 98.2 H (80.0-97.0) FL MCH 33.9 H (27.0-32.0) pg Immature Gran # 0.06 H (0.00-0.04) X 10*3/uL Eosinophils # 0.48 H (0.04-0.35) X 10*3/uL BUN 5.9 L (9.0-27.0) mg/dL BUN/Creatinine Ratio 7.38 L (12.00-20.00) Ratio Calcium 8.0 L (8.7-10.3) mg/dL Microbiology - Last 24 Hours (Table) 08/25/24 23:50 Blood Culture - Final Blood Assessment and Plan (1) Perforated gastric ulcer Current Visit: Yes Status: Acute Code(s): K25.5 - CHRONIC OR UNSPECIFIED GASTRIC ULCER WITH PERFORATION SNOMED Code(s): 2740834 (2) Peritonitis Current Visit: Yes Status: Acute Code(s): K65.9 - PERITONITIS, UNSPECIFIED SNOMED Code(s): 17365846 Plan: 1 Patient presented to the hospital with abdominal pain and this patient has been diagnosed with perforated gastric ulcer and will need for for the enteric gram-negative as well as Bette to be the likely pathogen less likely gram- positive infection 2-patient remains to be afebrile and white count ihas normalized 3patient to continue with Zosyn and Diflucan while inpatient and will transition to oral Augmentin and Diflucan on discharge Dictation was produced using [email or web address] dictation software. please excuse any grammatical, word or spelling errors. Time with Patient: Less than 30
[2024-09-01 07:17] VITALS: BP 159/90; PULSE 81; RESP 16; TEMP 98.4
--- NOTE | 2024-09-01 10:32 | P.PN ---
Subjective Progress Note Date: 09/01/24 Principal diagnosis: Reason for follow-up is perforated peptic ulcer disease/peritonitis Patient is a 49-year-old male with DVT to the upper extremity, presenting to the hospital for evaluation of abdominal pain concerning of abdominal pain has been diagnosed with perforated gastric ulcer status post expiratory laparotomy with modified Luis Carlos patch repair. On today's evaluation that is 09/01/2024, Patient is afebrile patient is currently on room air and denies having any shortness of breath, the patient denies any chest pain or cough, the patient denies any nausea vomiting did not have any abdominal pain and no diarrhea. Patient white count was 8.5 as of yesterday no lab draw today blood culture has been negative Objective - Vital Signs Vital signs: Vital Signs Temp 98.4 F 09/01/24 07:16 Pulse 81 09/01/24 07:16 Resp 16 09/01/24 07:16 BP 159/90 09/01/24 07:16 Pulse Ox 92 L 09/01/24 07:16 FiO2 Intake & Output 08/31/24 09/01/24 09/01/24 18:59 06:59 18:59 Intake Total 680 Output Total 300 1460 Balance -300 -780 Intake: Oral 680 Output: Drainage 60 Right Abdomen 60 Urine 300 1400 Other: Voiding Method Toilet # Voids 5 - Exam GENERAL DESCRIPTION: Middle-age male lying in bed in no distress RESPIRATORY SYSTEM: Unlabored breathing , decreased breath sounds at bases HEART: S1 S2 regular rate and rhythm , ABDOMEN: Soft , mild tenderness EXTREMITIES: No edema feet - Labs CBC & Chem 7: 08/31/24 04:35 08/31/24 04:35 Labs: Microbiology - Last 24 Hours (Table) 08/25/24 23:50 Blood Culture - Final Blood Assessment and Plan (1) Perforated gastric ulcer Current Visit: Yes Status: Acute Code(s): K25.5 - CHRONIC OR UNSPECIFIED GASTRIC ULCER WITH PERFORATION SNOMED Code(s): 2366106 (2) Peritonitis Current Visit: Yes Status: Acute Code(s): K65.9 - PERITONITIS, UNSPECIFIED SNOMED Code(s): 87356547 Plan: 1 Patient presented to the hospital with abdominal pain and this patient has been diagnosed with perforated gastric ulcer and will need for for the enteric gram-negative as well as Bette to be the likely pathogen less likely gram- positive infection 2-patient remains to be afebrile and white count ihas normalized 3patient has shown clinical improvement with Zosyn and Diflucan while inpatient and plan to finish therapy with oral Augmentin and Diflucan on discharge Dictation was produced using [employer] dictation software. please excuse any grammatical, word or spelling errors. Time with Patient: Less than 30
--- NOTE | 2024-09-01 10:40 | P.PN ---
Subjective Progress Note Date: 08/31/24 patient 49-year-old gentleman past medical history significant for DVT open in the ER because of abdominal pain. Patient states that he was been having intermittent normal pain for the last week, patient admitted taking Motrin for this. Over the last 24 hours, patient pain worsened, patient was complaining of nausea as well. Because of abdominal pain, patient came to the ER Initial lab work done in the ER showed WBC 12.28, hemoglobin 19.5, platelet count 320, sodium 133, potassium 4, BUN 7, creatinine 1.19, AST 52, ALT 40 CT thoracic aorta done showed free abdominal area most notably around the liver, most likely perforated viscus Patient admitted to surgery and was taken for exploratory laparotomy. Internal medicine team were consulted for medical management 08/28. Patient seen and examined. No acute issues overnight. Continues to be n.p.o., diet to be added per surgery vital signs stable 08/29. Patient seen examined. States she feels much better, passing gas. Currently on clear liquid diet 08/30/2024 Patient is eval seen in follow-up in the medical floor. He is not having much abdominal pain. Abdominal binder is in place. He is currently on a clear liquid diet. He does complain of some cough nonproductive. He is using the incentive spirometer at the bedside. He continues on IV fluconazole as well as IV Zosyn. Labs today reveal a white blood cell count 11.94, hemoglobin 15.3. Cultures negative so far. 08/31/2024 Patient is seen in follow-up sitting up in the chair with abdominal binder noted and continues with AAYAN drain with minimal output, likely discontinue on discharge. Patient also continues with surgical wound VAC which will be discontinued possibly tomorrow per surgery. Patient is tolerating diet and having bowel movements and has been up and walking. Patient is continued on antibiotics with infectious disease following and will make arrangements regarding discharge medications. Patient is afebrile with no reports of chest pain or shortness of breath and reports to continuing to use incentive spirometer as instructed. Patient is medically stable once cleared by infectious disease and general surgery for discharge. Recommend close outpati ent follow-up with primary care provider. REVIEW OF SYSTEMS: CONSTITUTIONAL: No fever, no malaise,. CARDIOVASCULAR: No chest pain, no palpitations, no syncope. PULMONARY: No shortness of breath, no cough, GASTROINTESTINAL: No diarrhea, no nausea, no vomiting, no abdominal pain. NEUROLOGICAL: No headaches, no weakness, PHYSICAL EXAMINATION: GENERAL: The patient is alert and oriented x3, not in any acute distress. Well developed, well nourished. HEENT: Pupils are round and equally reacting to light. EOMI. No scleral icterus. No conjunctival pallor. Normocephalic, atraumatic. No pharyngeal erythema. No thyromegaly. CARDIOVASCULAR: S1 and S2 present. No murmurs, rubs, or gallops. PULMONARY: Chest is clear to auscultation, no wheezing or crackles. ABDOMEN: Surgical incision seen, drain in place, as well as surgical wound VAC with good suction noted MUSCULOSKELETAL: No joint swelling or deformity. EXTREMITIES: No cyanosis, clubbing, or pedal edema. NEUROLOGICAL: Gross neurological examination did not reveal any focal deficits. SKIN: No rashes. Assessment: Abdominal pain secondary to a perforated gastric ulcerc status postexploratory laparotomy with modified Luis Carlos repair patch of perforated gastric ulcer Peritonitis Continued ongoing nicotine abuse DVT prophylaxis: Lovenox Full Code Plan: Patient is status post exploratory laparotomy with modified Luis Carlos repair patch of a perforated gastric ulcer with general surgery Patient maintained on antibiotics per infectious disease and will await discharge antibiotic recommendations Encouraged increase activity as tolerated and continued incentive spirometer use at least 10 times every hour while awake Diet to be advanced per surgery and patient is tolerating with no reports of nausea or vomiting denies abdominal pain Continue wound care per general surgery with wound VAC and will likely be removed tomorrow 09/01/2024 Continue with abdominal binder while up and out of bed and for comfort Patient is medically stable for discharge once cleared by general surgery and infectious disease The impression and plan of care has been dictated by Rashida Shipman, Nurse Practitioner as directed. Dr. Cameron MD I have performed a history and physical examination and medical decision making of this patient, discussed the same with the dictator, and agree with the dictators assessment and plan as written, documented as a scribe. Based on total visit time, I have performed more than 50% of this visit. Objective - Vital Signs Vital signs: Vital Signs Temp 97.9 F 08/31/24 07:23 Pulse 66 08/31/24 07:23 Resp 16 08/31/24 07:23 BP 161/89 08/31/24 07:23 Pulse Ox 96 05/01/25 07:23 FiO2 Intake & Output 08/30/24 08/31/24 08/31/24 18:59 06:59 18:59 Intake Total 1440 Output Total 40 2150 Balance -40 -710 Intake: Oral 1440 Output: Drainage 40 Right Abdomen 40 Urine 2150 Other: # Voids 3 - Labs CBC & Chem 7: 08/31/24 04:35 08/31/24 04:35 Labs: Abnormal Lab Results - Last 24 Hours (Table) 08/31/24 08/31/24 Range/Units 04:35 04:35 MCV 98.2 H (80.0-97.0) FL MCH 33.9 H (27.0-32.0) pg Immature Gran # 0.06 H (0.00-0.04) X 10*3/uL Eosinophils # 0.48 H (0.04-0.35) X 10*3/uL BUN 5.9 L (9.0-27.0) mg/dL BUN/Creatinine Ratio 7.38 L (12.00-20.00) Ratio Calcium 8.0 L (8.7-10.3) mg/dL
--- NOTE | 2024-09-01 12:29 | P.DS ---
Providers Date of admission: 08/26/24 01:02 Expected date of discharge: 09/01/24 Attending physician: Deniz Montague Consults: 08/26/24 08:20 Consult Physician Routine Consulting Provider: Jong Seals Consult Reason/Comments: medical management Do you want consulting provider notified?: Yes Consult Physician Routine Consulting Provider: Frank Pelaez Consult Reason/Comments: Perforated gastric ulcer, peritonitis Do you want consulting provider notified?: Yes Primary care physician: Stated None Hospital Course: Discharge diagnosis 1. Perforated gastric ulcer Hospital course This is a 49-year-old male who presented the hospital with worsening abdominal pain. He does take Motrin. Daily alcohol use and is a smoker. Chest x-ray reported free air under the right diaphragm. CT scan did show evidence of a ruptured viscus. Patient was taken to the OR and found to have perforated gastric ulcer. He is status post exploratory laparotomy with modified Luis Carlos patch of the perforated gastric ulcer. He is tolerating diet. His pain is controlled. He has been up and ambulating. He is afebrile. His white count has normalized. He will be discharged with antibiotics. Patient had minimal redness and some mild firmness noted on the left side lower part of the incision. Dr. Montague was notified and has cleared patient for discharge. Patient is stable for discharge. Please refer to chart for any further details. Physician Facility Service Associate note has been reviewed by physician. Signing provider agrees with the documented findings, assessment, and plan of care. Patient Condition at Discharge: Stable Plan - Discharge Summary Discharge Rx Participant: No New Discharge Prescriptions: New HYDROcodone/APAP 5-325MG [[employer] 5-325] 1 tab PO Q6HR PRN 3 Days #12 tab PRN Reason: Pain Amoxic-Pot Clav 875-125Mg [Augmentin 875-125] 1 tab PO Q12HR 10 Days #20 tab Fluconazole [Diflucan] 200 mg PO DAILY #10 tablet Pantoprazole Sodium [Protonix] 40 mg PO DAILY 3 Days #90 tab Discharge Medication List Amoxic-Pot Clav 875-125Mg [Augmentin 875-125] 1 tab PO Q12HR 10 Days #20 tab 09/01/24 [Rx] Fluconazole [Diflucan] 200 mg PO DAILY #10 tablet 09/01/24 [Rx] HYDROcodone/APAP 5-325MG [[employer] 5-325] 1 tab PO Q6HR PRN 3 Days #12 tab 09/01/24 [Rx] Pantoprazole Sodium [Protonix] 40 mg PO DAILY 3 Days #90 tab 09/01/24 [Rx] Follow up Appointment(s)/Referral(s): None,Stated [Primary Care Provider] - 1-2 days Deniz Montague MD [STAFF PHYSICIAN] - 10 Days Activity/Diet/Wound Care/Special Instructions: No driving while taking [employer] No lifting over 10 pounds Shower daily. No soaking or tub baths for 2 weeks Very light activity until you are reevaluated at your follow up appointment with your surgeon Continue a full liquid diet over the weekend. Then advance diet as tolerated. No alcohol use or smoking Discharge/Stand Alone Forms: Area PCPs Discharge Disposition: HOME SELF-CARE
== END 2024-09-01 12:01 | disposition home or self-care (01) | DRG 222 ==
LOC: EC 23:13 → 3SCARD 08-26 01:02 → 4SSUR 08-26 08:38
PROVIDERS: ADMIT Surgery; ATTEND Surgery
PROC: 0DQ70ZZ Repair Stomach, Pylorus, Open Approach (ICD-10-PCS; principal; 2024-08-26 07:30)
DX: K25.5 Chronic or unspecified gastric ulcer with perforation (principal); T39.315A Adverse effect of propionic acid derivatives, initial encounter; R09.02 Hypoxemia; F17.200 Nicotine dependence, unspecified, uncomplicated; R18.8 Other ascites; R05.9 Cough, unspecified; K65.9 Peritonitis, unspecified; Z86.718 Personal history of other venous thrombosis and embolism
CPT/HCPCS: 36415; 71045; 71275; 74174; 80048; 80053; 81001; 82150; 83605; 83690; 84484; 85025; 85610; 85730; 86850; 86900; 86901; 87040; 93005; 96361; 96365; 96366; 96375; 96376; 99291